=== PATIENT | male | born 1965 | race Two or more races ===

== ENCOUNTER 2016-02-16 06:45 | Emergency (ER) | payer BC ==
[~2016-02-16] VITALS: Ht 180.3 cm; Wt 94.8 kg
[~2016-02-16 06:45] MED LIST: ADVAIR 100-501 EACH INH; ALBUTEROL SULF8.5 GM INH; AMOXICILLIN500 MG ORAL; AZITHROMYCIN250 MG ORAL; BACTRIM DS TAB1 EAC1 ORAL; BACTRIM DS TAB1 EACH PO; CEPHALEXIN500 MG ORAL; CORTISPORIN EAR10 ML OTIC; FLOVENT2 PUFF2 INH; IBUPROFEN200 MG ORAL; IBUPROFEN600 MG ORAL; INTELENCE100 MG PO; IPRATROPIU0.2 MG/1 M HHN; ISENTRESS400 MG PO; KEFLEX500 MG ORAL; NORCO 5-325 TA1 EACH ORAL; NORVIR100 MG PO; PHENERGAN6.25 MG/5 ORAL; PREDNISONE20 MG ORAL; PREDNISONE50 MG ORAL; PREZISTA600 MG PO; PROAIR HFA8.5 GM INH; QVAR 80MCG ORA1 PUFF; ROBITUSSIN COU118 M4 PO; TRUVADA TABLET1 EACH PO; ZITHROMAX250 MG ORAL; ZITHROMAX600 MG PO
[2016-02-16] MEDS ORDERED: DuoNeb 0.5-3(2.5)mg/3ml neb HHN ONE (07:00)
--- NOTE | 2016-02-16 07:03 | Emergency Room Report ---
History of Present Illness General Chief Complaint: Flu Like Symptoms Source: Patient Present Illness HPI Patient is a 50-year-old male presented after increased cough which was intermittently productive. The patient reported having subjective fever the patient became ill proximal and 4 days ago. Patient had not been vomiting. He reported having intermittent chest pain which is worse after coughing. Patient had increased coughing with deep breath. Patient denied any positional changes. He had been taking Robitussin-DM without improvement. Allergies: Coded Allergies: CIPROFLOXACIN (Verified Allergy, Severe, Anaphylaxis, 02/16/16) Patient History Past Medical History: see triage record Reviewed Nursing Documentation: PMH: Agreed, PSxH: Agreed Nursing Documentation-PMH Hx Cardiac Problems: No Hx Asthma: Yes Hx Cancer: No Hx Gastrointestinal Problems: No Hx Neurological Problems: No Review of Systems All Other Systems: negative except mentioned in HPI Physical Exam Vital Signs Date Time Temp Pulse Resp B/P Pulse Ox O2 Delivery O2 Flow Rate FiO2 02/16/16 06:50 99.3 74 12 150/91 99 Room Air Sp02 EP Interpretation: reviewed, normal General Appearance: normal inspection, well appearing, no apparent distress, alert, GCS 15 Head: atraumatic ENT: normal ENT inspection, hearing grossly normal, normal voice Neck: normal inspection, full range of motion, supple, no bony tend Respiratory: normal inspection, lungs clear, normal breath sounds, no respiratory distress, no retraction, no wheezing Cardiovascular #1: regular rate, rhythm, no edema Gastrointestinal: normal inspection, normal bowel sounds, non tender, soft, no guarding, no hernia Genitourinary: no CVA tenderness Musculoskeletal: normal inspection, back normal, normal range of motion Neurologic: normal inspection, alert, oriented x3, responsive, environmental engineering manager III-XII nml as tested, speech normal Psychiatric: normal inspection, judgement/insight normal, mood/affect normal Skin: normal inspection, normal color, no rash Medical Decision Making Diagnostic Impression: Primary Impression: Acute bronchitis ER Course Patient presented for cough.Differential diagnosis included but was not limited to bronchitis, pneumonia, pulmonary embolism, pericarditis, asthma, foreign body. EKG was ordered due to patient's chest pain. The patient's symptoms are not consistent with pulmonary embolism and more consistent with a lung infection. The patient was given a breathing treatment. He was started on antibiotics do to a likely secondary infection of a viral infection and immunocompromise. Chest x-ray was ordered. A chest x-ray one view interpreted by me showed normal lung maya normal cardiac size without evident infiltrate. Patient was given oral Decadron and a prescription for Phenergan with codeine cough syrup.The patient is advised to follow up with primary care doctor in 1-2 days. Patient is advised to return if any worsening condition or if any changes in status that are concerning. EKG Diagnostic Results Rate: normal Rhythm: NSR - 77 ST Segments: no acute changes Rhythm Strip Diag. Results EP Interpretation: yes Rhythm: NSR, no PVC's, no ectopy Chest X-Ray Diagnostic Results EP Interpretation: Yes Findings: no consolidation, no effusion, no pneumothorax, no acute cardiopulmonary disease Number of Views: 1 Last Vital Signs Date Time Temp Pulse Resp B/P Pulse Ox O2 Delivery O2 Flow Rate FiO2 02/16/16 06:50 99.3 74 12 150/91 99 Room Air Status: improved Disposition: HOME, SELF-CARE Condition: Stable Scripts Guaifenesin/Codeine (Guaifenesin-Codeine Syrup) 5 Ml Liquid 5 ML ORAL Q6H Y for For Cough, #118 ML Prov: Darrel Berumen 02/16/16 Darrel Berumen Feb 16, 2016 07:03
[2016-02-16 07:04] VITALS: BP 142/82
[2016-02-16 07:30] VITALS: BP 142/82
[2016-02-16] MEDS ORDERED: ROBITUSSIN AC5 ML ORAL (07:40)
[2016-02-16] MEDS ORDERED: ZITHROMAX250 MG ORAL (07:40)
[2016-02-16] MEDS ORDERED: Dexamethasone Elixir 0.25mg/2.5ml ORAL ONE (07:45)
[2016-02-16 08:10] VITALS: BP 155/84
--- NOTE | 2016-02-16 10:37 | Diagnostic Imaging Report ---
Indication: SOB, just Technique: One view of the chest Comparison: September 21, 2025 Findings: Bands of atelectasis or scarring are seen in the left mid and lower lung. The lungs and pleural spaces are otherwise clear. The heart is upper limits of normal in size. The upper mediastinum is unremarkable Impression: Left lateral basilar atelectasis versus scarring No acute process otherwise
--- NOTE | 2016-02-18 14:54 | Cardiology Report ---
APPROVED REPORT EKG Measurement Heart [id number] Normal sinus rhythm Normal ECG
== END 2016-02-16 08:13 | disposition home or self-care (01) ==
LOC: EMR 07:00
DX: J20.9 Acute bronchitis, unspecified (principal); J45.909 Unspecified asthma, uncomplicated; Z88.1 Allergy status to other antibiotic agents
CPT/HCPCS: 71010; 86710; 93005; 94640; 94664; 99283; J7620

== ENCOUNTER 2016-05-06 07:14 | Emergency (ER) | payer BC ==
[~2016-05-06] VITALS: Ht 177.8 cm; Wt 93.0 kg
[~2016-05-06 07:14] MED LIST changes: +ROBITUSSIN AC5 ML ORAL
[2016-05-06] MEDS ORDERED: NKM (07:29)
[2016-05-06] MEDS ORDERED: Metoclopramide 10mg/2ml Inj IVP ONE (07:45)
[2016-05-06] MEDS ORDERED: Acetaminophen 500mg (ES) tab ORAL ONE (07:45)
[2016-05-06] MEDS ORDERED: Albuterol ud Inhalation HHN ONE ×2 (07:45→10:00)
[2016-05-06] MEDS ORDERED: Azithromycin 500 MG in NS 275 ML IV ONE (07:45)
[2016-05-06] MEDS ORDERED: Solu-MEDROL 125mg Inj IVP ONE (07:45)
[2016-05-06] MEDS ORDERED: DiphenhydrAMINE 50mg/ml Inj IVP ONE (07:45)
[2016-05-06] MEDS ORDERED: fentaNYL 100 mcg/2 mL IV ONE (07:45)
[2016-05-06] MEDS ORDERED: Ipratropium 0.02% Inh Soln 2.5ml UD HHN ONE (07:45)
--- NOTE | 2016-05-06 07:51 | Emergency Room Report ---
History of Present Illness General Chief Complaint: Upper Respiratory Illness Source: Patient Present Illness [facility] The patient presents with 3-4 days of cough with fever and productive phlegm. In addition to that he's been wheezing. The cough has actually been present for 4 weeks. He is producing some green phlegm. Does not have nausea or vomiting or diarrhea. He has chest pain also when he coughs that is 8/10. Pleuritic. When he was getting out of his ride at the emergency department he had a coughing fit and almost passed out and caught himself before he hit the ground. He denies any palpitations at that time or increased chest pain. Prior admissions for asthma and asthmatic bronchitis. The patient is HIV positive but has not been taking his medications for 4 or 5 months. He claims that his schedule is too busy. The patient denies any headache, rashes, dysuria, joint pain. He did not receive a flu shot last year. 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 Reviewed Nursing Documentation: PMH: Agreed, PSxH: Agreed Nursing Documentation-PMH Past Medical History: No History, Except For Hx Asthma: Yes Hx Cancer: No Hx Gastrointestinal Problems: No Hx Neurological Problems: No Review of Systems All Other Systems: negative except mentioned in HPI Physical Exam Vital Signs Date Time Temp Pulse Resp B/P Pulse Ox O2 Delivery O2 Flow Rate FiO2 05/06/16 07:26 102.4 97 16 122/76 95 Room Air Sp02 EP Interpretation: reviewed, abnormal - interpreted as low by me for non- smoker General Appearance: well appearing, no apparent distress, GCS 15 Head: normocephalic Eyes: bilateral eye PERRL, bilateral eye normal inspection ENT: moist mucus membranes Neck: supple Respiratory: chest non-tender, rhonchi, wheezing, expiration, other - paroxysms of coughing Cardiovascular #1: regular rate, rhythm Cardiovascular #2: 2+ radial (R) Gastrointestinal: normal inspection, normal bowel sounds, non tender, no mass, non-distended Musculoskeletal: back normal, gait/station normal, normal range of motion Neurologic: alert, oriented x3, grossly normal Psychiatric: mood/affect normal Skin: normal inspection, warm/dry Medical Decision Making Diagnostic Impression: Primary Impression: Pneumonia Qualified Codes: J18.9 - Pneumonia, unspecified organism Additional Impressions: HIV disease Noncompliance ER Course The patient presents with fever, dyspnea, hypoxia and productive cough. Differential includes pneumonia, asthmatic bronchitis, Pneumocystis carinae amongst others. Patient needs evaluation with blood cultures, CBC, labs and lactate. Initially treated with Symmetrel, breathing treatments fluid hydration antipyretics and antibiotics. The fact that the patient's not being compliant with his HIV medications put him at risk however most common etiologies would be bacterial. The patient will need to be admitted to the hospital. Patient slightly improved with tx, but still wheezing. Repeat treatments. Labs with normal WBC and lactic acid. Patient needs admission for continued antibiotic treatment along with assessment of HIV status. Admit med Dr. North. Laboratory Tests Test 05/06/16 07:45 05/06/16 13:20 White Blood Count 5.0 K/UL (4.8-10.8) Red Blood Count 4.78 M/UL (4.70-6.10) Hemoglobin 14.4 G/DL (14.2-18.0) Hematocrit 40.7 % (42.0-52.0) L Mean Corpuscular Volume 85 FL (80-99) Mean Corpuscular Hemoglobin 30.2 PG (27.0-31.0) Mean Corpuscular Hemoglobin Concent 35.4 G/DL (32.0-36.0) Red Cell Distribution Width 10.6 % (11.6-14.8) L Platelet Count 152 K/UL (150-450) Mean Platelet Volume 11.2 FL (6.5-10.1) H Neutrophils (%) (Auto) 53.3 % (45.0-75.0) Lymphocytes (%) (Auto) 30.8 % (20.0-45.0) Monocytes (%) (Auto) 13.8 % (1.0-10.0) H Eosinophils (%) (Auto) 1.1 % (0.0-3.0) Basophils (%) (Auto) 1.0 % (0.0-2.0) Sodium Level 140 mEQ/L (135-145) Potassium Level 3.5 mEQ/L (3.4-4.9) Chloride Level 99 mEQ/L (98-107) Carbon Dioxide Level 22 mEQ/L (20-30) Anion Gap 19 (5-15) H Blood Urea Nitrogen 9 mg/dL (7-23) Creatinine 0.9 mg/dL (0.7-1.2) Estimate Glomerular Filtration Rate > 60 mL/min (>60) Glucose Level 118 mg/dL (74-106) H Lactic Acid Level 1.70 mmol/L (0.66-2.22) Calcium Level 8.7 mg/dL (8.6-10.2) Total Bilirubin 1.5 mg/dL (0.0-1.2) H Direct Bilirubin 0.3 mg/dL (0.1-0.3) Aspartate Amino Transferase (AST) 83 U/L (5-40) H Alanine Aminotransferase (ALT) 86 U/L (3-41) H Alkaline Phosphatase 91 U/L (40-129) Troponin I < 0.30 ng/mL (<=0.30) Total Protein 7.3 g/dL (6.6-8.7) Albumin 4.2 g/dL (3.5-5.2) Globulin 3.1 g/dL Albumin/Globulin Ratio 1.3 (1.0-2.7) Urine Color Pale yellow Urine Appearance Clear Urine pH 6 (4.5-8.0) Urine Specific [place] 1.010 (1.005-1.035) Urine Protein Negative (NEGATIVE) Urine Glucose (UA) Negative (NEGATIVE) Urine Ketones 3+ (NEGATIVE) H Urine Occult Blood Negative (NEGATIVE) Urine Nitrite Negative (NEGATIVE) Urine Bilirubin Negative (NEGATIVE) Urine Urobilinogen Normal MG/DL (0.0-1.0) Urine Leukocyte Esterase Negative (NEGATIVE) Microbiology Date/Time Source Procedure Growth Status 05/06/16 08:25 Nasal Nares Influenza Types A,B Antigen (KINZA) - Final Complete EKG Diagnostic Results Rate: normal Rhythm: NSR ST Segments: no acute changes Rhythm Strip Diag. Results EP Interpretation: yes Rhythm: NSR, no PVC's, no ectopy Chest X-Ray Diagnostic Results EP Interpretation: Yes Findings: no effusion, no pneumothorax, other - RLL infiltrate Number of Views: 1 Last Vital Signs Date Time Temp Pulse Resp B/P Pulse Ox O2 Delivery O2 Flow Rate FiO2 05/06/16 12:00 98.4 85 18 125/75 97 Room Air Status: improved Disposition: ADMITTED INPATIENT Condition: Serious Davonte Wagner M.D. May 06, 2016 07:51
[2016-05-06] MEDS ORDERED: NS 275 ML ONE (08:02)
[2016-05-06] MEDS ORDERED: Tubing IV Cassette IV ONE (08:02)
[2016-05-06] MEDS ORDERED: Azithromycin Inj IV ONE (08:02)
[2016-05-06 08:28] LABS: EOSINOPHILS % (AUTO) 1.1 % (0.0-3.0); LYMPHOCYTES % (AUTO) 30.8 % (20.0-45.0); MEAN CORPUSCULAR HEMOGLOBIN 30.2 PG (27.0-31.0); MEAN CORPUSCULAR HGB CONC 35.4 G/DL (32.0-36.0); MEAN CORPUSCULAR VOLUME 85 FL (80-99); MEAN PLATELET VOLUME 11.2 FL (6.5-10.1); MONOCYTES % (AUTO) 13.8 % (1.0-10.0); NEUTROPHILS % (AUTO) 53.3 % (45.0-75.0); PLATELET COUNT 152 K/UL (150-450); RED BLOOD COUNT 4.78 M/UL (4.70-6.10); RED CELL DISTRIBUTION WIDTH 10.6 % (11.6-14.8)
[2016-05-06 08:30] LABS: ALANINE AMINOTRANSFERASE 86 U/L (3-41); ALBUMIN/GLOBULIN RATIO 1.3 (1.0-2.7); ANION GAP 19 (5-15); ASPARTATE AMINO TRANSFERASE 83 U/L (5-40); CALCIUM 8.7 mg/dL (8.6-10.2); CARBON DIOXIDE 22 mEQ/L (20-30); CHLORIDE 99 mEQ/L (98-107); CREATININE 0.9 mg/dL (0.7-1.2); GLOMERULAR FILTRATION RATE > 60 mL/min (>60); HEMOLYSIS 6; POTASSIUM 3.5 mEQ/L (3.4-4.9); SODIUM 140 mEQ/L (135-145); TOTAL PROTEIN 7.3 g/dL (6.6-8.7); TROPONIN I < 0.30 ng/mL (<=0.30)
[2016-05-06 08:42] LABS: BILIRUBIN,DIRECT 0.3 mg/dL (0.1-0.3)
[2016-05-06 09:00] VITALS: BP 129/73
--- NOTE | 2016-05-06 09:24 | Diagnostic Imaging Report ---
Indication: COUGH Technique: One view of the chest Comparison: 02/16/2016 Findings: Lungs and pleural spaces are clear. Heart size is normal Impression: No acute process
[2016-05-06 12:00] VITALS: BP 125/75
[2016-05-06 14:09] LABS: APPEARANCE,URINE CLEAR; KETONES,URINE 3+ (NEGATIVE); LEUKOCYTE ESTERASE ,URINE NEGATIVE (NEGATIVE); NITRITE,URINE NEGATIVE (NEGATIVE); PH,URINE 6 (4.5-8.0); PROTEIN,URINE NEGATIVE (NEGATIVE); UROBILINOGEN,URINE NORMAL MG/DL (0.0-1.0)
[2016-05-06] MEDS ORDERED: CHERATUSSIN AC118 ML PO (14:58)
[2016-05-06] MEDS ORDERED: NYSTATIN100000 UN1 ORAL (14:59)
[2016-05-06] MEDS ORDERED: MYCELEX TROCHE10 MG ORAL (15:05)
[2016-05-06 15:14] VITALS: BP 106/78
[2016-05-06] MEDS ORDERED: LORATADINE10 M2 PO (15:20)
[2016-05-06 17:12] VITALS: BP 114/69
[2016-05-06] MEDS ORDERED: cefTRIAXone 1 GM in NS 55 ML IVPB ONE (17:15)
[2016-05-06 19:39] VITALS: BP 124/75
[2016-05-06 19:40] VITALS: BP 124/75
--- NOTE | 2016-05-09 22:25 | Cardiology Report ---
APPROVED REPORT EKG Measurement Heart [id number] Normal sinus rhythm Normal ECG
== END 2016-05-06 19:40 | disposition home or self-care (01) ==
LOC: EDBEDREQ 07:54 → EMR 08:01 → EDBEDREQ 09:38 → CANBEDREQ 19:28 → EDBEDREQ 19:28 → EMR 19:40
DX: J18.9 Pneumonia, unspecified organism (principal); B20 Human immunodeficiency virus [HIV] disease; Z91.14 Patient's other noncompliance with medication regimen; Z88.1 Allergy status to other antibiotic agents
CPT/HCPCS: 36415; 71010; 80053; 81003; 82248; 83605; 84484; 85025; 86710; 87040; 93005; 94640; 94664; 99285; J0456; J0696; J1200; J2765; J2930; J3010; J7050

== ENCOUNTER 2016-10-14 22:02 | Emergency (ER) | payer BC ==
[~2016-10-14] VITALS: Ht 177.8 cm; Wt 87.1 kg
[~2016-10-14 22:02] MED LIST changes: +CHERATUSSIN AC118 ML PO; +LORATADINE10 M2 PO; +MYCELEX TROCHE10 MG ORAL; +NKM; +NYSTATIN100000 UN1 ORAL
[2016-10-14] MEDS ORDERED: NKM (22:09)
[2016-10-14] MEDS ORDERED: Ipratropium 0.02% Inh Soln 2.5ml UD HHN ONE (22:30)
[2016-10-14] MEDS ORDERED: Albuterol ud Inhalation HHN ONE (22:30)
[2016-10-14] MEDS ORDERED: PredniSONE 20mg tab ORAL ONE (22:30)
[2016-10-14] MEDS ORDERED: PREDNISONE20 MG ORAL (23:08)
--- NOTE | 2016-10-14 23:09 | Emergency Room Report ---
History of Present Illness General Chief Complaint: Dyspnea/Respdistress Source: Patient Present Illness HPI This is a 51-year-old male with a history of asthma. He present with an asthma exacerbation for one day. This was because of the weather change. His inhaler is not helping. No fever chills but no nausea vomiting. Wheezing. Coughing is nonproductive in nature. Denies any other complaint. Last use of steroids over a year ago. Allergies: Coded Allergies: CIPROFLOXACIN (Verified Allergy, Severe, Anaphylaxis, 02/16/16) Patient History Past Medical History: see triage record, old chart reviewed, asthma Past Surgical History: none Pertinent Family History: none Social History: Denies: smoking Immunizations: other Reviewed Nursing Documentation: PMH: Agreed, PSxH: Agreed Nursing Documentation-PMH Hx Asthma: Yes - BRONCHITIS, PNEUMONIA Hx Cancer: No Hx Gastrointestinal Problems: No Review of Systems Eye: Denies: eye pain, blurred vision ENT: Denies: ear pain, nose congestion, throat swelling Respiratory: Reports: cough, shortness of breath, wheezing Cardiovascular: Denies: chest pain, palpitations Gastrointestinal: Denies: abdominal pain, diarrhea, nausea, vomiting Musculoskeletal: Denies: back pain, joint pain Skin: Denies: rash Neurological: Denies: headache, numbness Endocrine: Denies: increased thirst, increased urine Hematologic/Lymphatic: Denies: easy bruising All Other Systems: negative except mentioned in HPI Physical Exam Vital Signs Date Time Temp Pulse Resp B/P (MAP) Pulse Ox O2 Delivery O2 Flow Rate FiO2 10/14/16 22:05 98.1 80 18 189/91 98 10/14/16 22:23 Room Air 10/14/16 22:36 21 vitals normal Sp02 EP Interpretation: reviewed, normal General Appearance: well appearing, no apparent distress, alert Head: normocephalic, atraumatic Eyes: bilateral eye PERRL, bilateral eye EOMI ENT: hearing grossly normal, normal pharynx Neck: full range of motion, supple, no meningismus Respiratory: chest non-tender, wheezing Cardiovascular #1: regular rate, rhythm, no murmur Gastrointestinal: normal bowel sounds, non tender, no mass, no organomegaly, no bruit, non-distended Musculoskeletal: back normal, gait/station normal, normal range of motion Psychiatric: mood/affect normal Skin: warm/dry Medical Decision Making Diagnostic Impression: Primary Impression: Bronchitis with asthma, acute ER Course patient presents with a viral bronchitis with asthma exacerbation. Better after breathing treatment. We'll discharge home. No evidence of pneumonia, ACS , PE to name a few. Last Vital Signs Date Time Temp Pulse Resp B/P (MAP) Pulse Ox O2 Delivery O2 Flow Rate FiO2 10/14/16 22:38 80 20 100 Room Air 21 10/14/16 22:05 98.1 189/91 Status: improved Disposition: HOME, SELF-CARE Condition: Stable Scripts Prednisone* (PREDNISONE*) 20 Mg Tablet 60 MG ORAL DAILY, #12 TAB Prov: IRENE BUENO M.D. 10/14/16 Referrals: [facility],REFERRING (PCP) Additional Instructions: Followup with your DrJhonatan in 2-5 days if not better. Return if symptom worsen. IRENE BUENO M.D. Oct 14, 2016 23:09
[2016-10-14 23:25] VITALS: BP 120/80
== END 2016-10-14 23:35 | disposition home or self-care (01) ==
LOC: EMR 22:20
DX: J45.901 Unspecified asthma with (acute) exacerbation (principal)
CPT/HCPCS: 94640; 99284

== ENCOUNTER 2016-10-20 17:17 | Emergency (ER) | payer BC ==
[~2016-10-20] VITALS: Ht 177.8 cm; Wt 86.2 kg
[2016-10-20] MEDS ORDERED: Albuterol ud Inhalation HHN ONE (17:30)
[2016-10-20] MEDS ORDERED: VENTOLIN HFA18 GM INH (17:39)
[2016-10-20] MEDS ORDERED: ACETAMINOPHEN-1 EAC1 ORAL (17:39)
[2016-10-20] MEDS ORDERED: AUGMENTIN 875-1 EAC1 ORAL (17:39)
--- NOTE | 2016-10-20 18:06 | Emergency Room Report ---
History of Present Illness General Chief Complaint: Upper Respiratory Illness Source: Patient Present Illness HPI 51YOM with continued dry cough, measured fever "103" at home, now with sinus congestion, sore throat + history of asthma + history of HIV. Stopped HAART 6 months ago "because I've been busy." Last viral load was "low" and cd4 "high." Used to be on bactrim PPx Denies PCP PNA in the past Denies smoking Seen and DCed 6 days ago from ED for asthma exacerbation Was given short course of prednisone which he finished today Allergies: Coded Allergies: CIPROFLOXACIN (Verified Allergy, Severe, Anaphylaxis, 02/16/16) Patient History Past Medical History: asthma, HIV Past Surgical History: none Pertinent Family History: none Social History: Denies: smoking, alcohol use, drug use Immunizations: UTD Reviewed Nursing Documentation: PMH: Agreed, PSxH: Agreed Nursing Documentation-PMH Past Medical History: No History, Except For Hx Cardiac Problems: No - HIV Hx Hypertension: No Hx Pacemaker: No Hx Asthma: Yes - BRONCHITIS, PNEUMONIA Hx COPD: No Hx Diabetes: No Hx Cancer: No Hx Gastrointestinal Problems: No Hx Dialysis: No History Of Psychiatric Problem: No Hx Neurological Problems: No Hx Cerebrovascular Accident: No Hx Seizures: No Review of Systems All Other Systems: negative except mentioned in HPI Physical Exam Vital Signs Date Time Temp Pulse Resp B/P (MAP) Pulse Ox O2 Delivery O2 Flow Rate FiO2 10/20/16 17:32 98.6 102 22 151/90 96 Room Air Sp02 EP Interpretation: reviewed, normal General Appearance: normal inspection, well appearing, no apparent distress, alert, GCS 15, non-toxic Head: normocephalic, atraumatic Eyes: bilateral eye PERRL, bilateral eye EOMI ENT: normal ENT inspection, hearing grossly normal, normal voice, pharyngeal erythema, tonsillar exudate Neck: normal inspection, full range of motion, supple, no bony tend Respiratory: normal inspection, no rhonchi, no respiratory distress, no retraction, no accessory muscle use, speaking full sentences, wheezing Cardiovascular #1: regular rate, rhythm, no edema Gastrointestinal: normal inspection, normal bowel sounds, non tender, soft, no guarding, no hernia Genitourinary: no CVA tenderness Musculoskeletal: normal inspection, back normal, normal range of motion, Lisa' s Sign negative Psychiatric: normal inspection, judgement/insight normal, mood/affect normal Skin: normal inspection, normal color, no rash Medical Decision Making Diagnostic Impression: Primary Impression: Bronchitis Additional Impression: Strep pharyngitis ER Course Continued bronchitis with subjective fever at home Afebrile here Well appearing except for cough Mild wheeze, improved with nebs X2, steroids History of HIV not on HAART but not hypoxic and CXR no PNA or PCP PNA has strep pharyngitis as well Rx Abx Rx Ventolin, T#3 Close PMD followup to recheck and consider restarting HAART DC home Chest X-Ray Diagnostic Results Chest X-Ray Diagnostic Results : Chest X-Ray Ordered: Yes # of Views/Limited/Complete: 1 View Indication: Shortness of Breath EP Interpretation: Yes Interpretation: no consolidation, no effusion, no pneumothorax, no acute cardiopulmonary disease, other - Unchanged from 05/06/16 CXR Impression: No acute disease Electronically Signed by: Dr Ramesh Castañeda MD Last Vital Signs Date Time Temp Pulse Resp B/P (MAP) Pulse Ox O2 Delivery O2 Flow Rate FiO2 10/20/16 17:39 96 22 93 Room Air 10/20/16 17:32 98.6 151/90 Status: improved Disposition: HOME, SELF-CARE Condition: Improved Scripts Acetaminophen With Codeine (T#3) (TYLENOL #3 TAB*) Y Tab 1 TAB ORAL Q8H Y for For Cough for 7 Days, #30 TAB Prov: RAMESH CASTAÑEDA M.D. 10/20/16 Albuterol Sulfate (VENTOLIN HFA) 18 Gm Hfa.aer.ad 1 PUFF INH EVERY 6 HOURS for For Cough, #18 GM 0 Refills Prov: RAMESH CASTAÑEDA M.D. 10/20/16 Amoxicillin/Potassium Clav 875-125* (AUGMENTIN 875-125 TABLET*) 1 Each Tablet 1 TAB ORAL TWICE A DAY for 7 Days, #14 TAB Prov: RAMESH CASTAÑEDA M.D. 10/20/16 Referrals: [facility],REFERRING (PCP) Patient Instructions: Pharyngitis, [id number] Additional Instructions: - Take ALL antibiotics until finished - Use albuterol inhaler as needed for cough - Take T#3 or tea with honey at night for sleep/cough treatment - Follow up with your primary doctor to restart HIV medication RAMESH CASTAÑEDA M.D. Oct 20, 2016 18:06
[2016-10-20] MEDS ORDERED: Tylenol #3 tab (300mg/30mg) ORAL ONE ×2 (18:15→18:30)
[2016-10-20] MEDS ORDERED: Augmentin 875mg Tab ORAL ONE (18:30)
[2016-10-20 18:38] VITALS: BP 125/80
--- NOTE | 2016-10-21 10:34 | Diagnostic Imaging Report ---
Indication: SOB Technique: One view of the chest Comparison: none Findings: Lungs and pleural spaces are clear. Heart size is normal. No significant interim change Impression: No acute process This agrees with the preliminary interpretation provided by the emergency room physician
== END 2016-10-20 18:40 | disposition home or self-care (01) ==
LOC: EMR 17:40
DX: J20.9 Acute bronchitis, unspecified (principal); J02.0 Streptococcal pharyngitis; J45.909 Unspecified asthma, uncomplicated; Z88.8 Allergy status to other drugs, medicaments and biological substances
CPT/HCPCS: 71010; 94640; 99284; J8540

== ENCOUNTER 2016-11-22 17:06 | Emergency (ER) | payer BC, OTHER ==
[~2016-11-22] VITALS: Ht 177.8 cm; Wt 81.6 kg
[~2016-11-22 17:06] MED LIST changes: +ACETAMINOPHEN-1 EAC1 ORAL; +AUGMENTIN 875-1 EAC1 ORAL; +VENTOLIN HFA18 GM INH
[2016-11-22] MEDS ORDERED: Albuterol ud Inhalation HHN ONE (17:45)
[2016-11-22] MEDS ORDERED: Ipratropium 0.02% Inh Soln 2.5ml UD HHN ONE (17:45)
[2016-11-22] MEDS ORDERED: BACTRIM DS TAB1 EAC1 ORAL (18:27)
[2016-11-22] MEDS ORDERED: PROAIR HFA8.5 GM INH (18:27)
[2016-11-22] MEDS ORDERED: PREDNISONE20 MG ORAL (18:27)
[2016-11-22] MEDS ORDERED: PROMETHAZINE-C118 M1 ORAL (18:27)
[2016-11-22] MEDS ORDERED: ZITHROMAX250 MG ORAL (18:27)
[2016-11-22 18:36] VITALS: BP 125/70
--- NOTE | 2016-11-22 20:39 | Emergency Room Report ---
History of Present Illness General Chief Complaint: Upper Respiratory Illness Source: Patient Present Illness HPI The patient is a 51-year-old male with a history of HIV presenting for 2 months of coughing. He is unsure of his CD4 count. He has been treated in this emergency department twice for the same complaint. He was given oral steroids, albuterol, and Augmentin. He states that symptoms initially resolved and then returned. He is producing a green to yellow sputum. He also admits to subjective fever and chills. He denies any other symptoms including nausea, vomiting, hemoptysis, shortness of breath, chest pain, abdominal pain, dizziness, blurred vision Allergies: Coded Allergies: CIPROFLOXACIN (Verified Allergy, Severe, Anaphylaxis, 02/16/16) Patient History Past Medical History: see triage record Pertinent Family History: none Reviewed Nursing Documentation: PMH: Agreed, PSxH: Agreed Nursing Documentation-PMH Hx Cardiac Problems: No - HIV Hx Hypertension: No Hx Pacemaker: No Hx Asthma: Yes - BRONCHITIS, PNEUMONIA Hx COPD: No Hx Diabetes: No Hx Cancer: No Hx Gastrointestinal Problems: No Hx Dialysis: No Hx Neurological Problems: No Hx Cerebrovascular Accident: No Hx Seizures: No Review of Systems All Other Systems: negative except mentioned in HPI Physical Exam Vital Signs Date Time Temp Pulse Resp B/P (MAP) Pulse Ox O2 Delivery O2 Flow Rate FiO2 11/22/16 17:22 100.6 116 20 155/66 93 Room Air Sp02 EP Interpretation: reviewed, normal General Appearance: no apparent distress, alert, GCS 15, non-toxic Head: normocephalic, atraumatic Eyes: bilateral eye normal inspection, bilateral eye PERRL ENT: hearing grossly normal, normal pharynx, no angioedema, normal voice Neck: full range of motion, supple/symm/no masses Respiratory: chest non-tender, no respiratory distress, no retraction, no accessory muscle use, wheezing - bilat diffuse Cardiovascular #1: regular rate, rhythm, no edema Cardiovascular #2: 2+ carotid (R), 2+ carotid (L), 2+ radial (R), 2+ radial (L) , 2+ dorsalis pedis (R), 2+ dorsalis pedis (L) Genitourinary: normal inspection, no CVA tenderness Musculoskeletal: back normal, gait/station normal, normal range of motion, non- tender Neurologic: alert, oriented x3, responsive, motor strength/tone normal, sensory intact, speech normal Psychiatric: judgement/insight normal, memory normal, mood/affect normal, no suicidal/homicidal ideation Skin: normal color, no rash, warm/dry, well hydrated Lymphatic: no adenopathy Medical Decision Making PA Attestation Dr. Berumen is my supervising physician. Patient management was discussed with my supervising physician Diagnostic Impression: Primary Impression: Atypical pneumonia Additional Impression: Asthma Qualified Codes: J45.909 - Unspecified asthma, uncomplicated ER Course The patient is a 51-year-old male with a history of HIV presenting for 2 months of coughing. Differential diagnosis include but not limited to pharyngitis, sinusitis, AOM, bronchitis, PNA PE: afebrile. No apparent distress. No TTP over maxillary or frontal sinuses. Lungs: diffuse wheezing. No accessory muscle use. No resp distress Heart: RRR, no abnormal heart sounds Ears: external auditory canal clear. Non erythematous. Bilat TM intact. Cone of light present bilat. No bulging of TM. No serous fluid seen. no nasal D/C No cervical lymphad No tonsillar exudate. Uvula midline.Oropharynx non erythematous CXR shows Increased bronchovascular markings The patient is given a breathing treatment in ER The patient will be discharged home with a prescription for albuterol, prednisone, abx, and cough medication. He states that he will followup with his primary doctor. ER precautions are given Chest X-Ray Diagnostic Results Chest X-Ray Diagnostic Results : Chest X-Ray Ordered: Yes # of Views/Limited/Complete: 1 View Indication: Other - cough EP Interpretation: Yes Interpretation: no effusion, no pneumothorax, other - Increased markings Impression: Other - Increased markings Electronically Signed by: Timmy Garces PA-C PA Scribe Text My and my supervising physician's interpretation of the chest xrays are there is no effusion, no acute cardiopulmonary disease, no pneumothorax. There is however increased interstitial markings Last Vital Signs Date Time Temp Pulse Resp B/P (MAP) Pulse Ox O2 Delivery O2 Flow Rate FiO2 11/22/16 18:36 99.2 110 22 125/70 99 Room Air Status: improved Disposition: HOME, SELF-CARE Condition: Improved Scripts Albuterol Sulfate* (PROAIR HFA*) 8.5 Gm Hfa.aer.ad 2 PUFFS INH Q6H, #8.5 GM 0 Refills Prov: TIMMY GARCES.A. 11/22/16 Prednisone* (PREDNISONE*) 20 Mg Tablet 40 MG ORAL DAILY, #10 TAB Prov: TIMMY GARCES.A. 11/22/16 Azithromycin* (ZITHROMAX*) 250 Mg Tablet 250 MG ORAL DAILY, #6 TAB 0 Refills Take two tables once daily for 1 day, then one tablet once daily for 4 days. Prov: TIMMY GARCES.A. 11/22/16 Trimethoprim/Sulfamethoxazole 160/800* (BACTRIM DS TABLET*) 1 Each Tablet 1 TAB ORAL TWICE A DAY, #14 TAB Prov: TIMMY GARCESA. 11/22/16 Codeine/Promethazine Hcl* (PROMETHAZINE-CODEINE SYRUP*) 118 Ml Syrup 5 ML ORAL Q6H Y for For Cough, #120 ML 0 Refills Prov: TIMMY GARCESAJhonatan 11/22/16 Patient Instructions: Cough, Adult, Community-Acquired Pneumonia, Adult Additional Instructions: I discussed my findings with the patient. All questions and concerns have been answered. Treatment and medication compliance have been addressed. I advised the patient that they need to follow up with your primary doctor as soon as possible. Return to ED if pain remains or worsens, cough worsens or remains, you notice blood in your sputum, you notice wheezing, you experience a fever, or if needed for any reason. Patient verbalized understanding of discharge instructions. TIMMY GARCES Nov 22, 2016 20:39
--- NOTE | 2016-11-23 09:39 | Diagnostic Imaging Report ---
Indication: COUGH Comparison: 10/20/2016 Findings: Single view of the chest shows a normal cardiomediastinal silhouette. Pulmonary vasculature is normal. Lung are clear. Soft tissues and osseous structures are within normal limits. Impression: No acute chest disease
== END 2016-11-22 18:36 | disposition home or self-care (01) ==
LOC: EMR 18:20
DX: J18.9 Pneumonia, unspecified organism (principal); J45.909 Unspecified asthma, uncomplicated
CPT/HCPCS: 71010; 94640; 99284

== ENCOUNTER 2016-11-25 16:07 | Emergency (ER) | payer BC ==
[~2016-11-25] VITALS: Ht 177.8 cm; Wt 77.1 kg
[~2016-11-25 16:07] MED LIST changes: +PROMETHAZINE-C118 M1 ORAL
[2016-11-25] MEDS: Ipratropium 0.02% Inh Soln 2.5ml UD HHN SCH ×3 (16:54→17:38)
[2016-11-25] MEDS: Albuterol ud Inhalation HHN SCH ×3 (16:55→17:39)
[2016-11-25 17:49] VITALS: BP 117/66
[2016-11-25 18:32] LABS: ALANINE AMINOTRANSFERASE 37 U/L (12-78); ALBUMIN/GLOBULIN RATIO 0.5 (1.0-2.7); ANION GAP 20 mmol/L (5-15); ASPARTATE AMINO TRANSFERASE 21 U/L (15-37); CALCIUM 9.9 MG/DL (8.5-10.1); CARBON DIOXIDE 17 MMOL/L (21-32); CHLORIDE 87 MMOL/L (98-107); CREATININE 1.4 MG/DL (0.55-1.30); GLOMERULAR FILTRATION RATE 53.4 mL/min (>60); POTASSIUM 4.6 MMOL/L (3.5-5.1); SODIUM 124 MMOL/L (136-145); TOTAL PROTEIN 7.5 G/DL (6.4-8.2)
[2016-11-25 18:41] LABS: MEAN CORPUSCULAR HGB CONC 33.7 G/DL (32.0-36.0); MEAN CORPUSCULAR VOLUME 86 FL (80-99); MEAN PLATELET VOLUME 7.7 FL (6.5-10.1); PLATELET COUNT 215 K/UL (150-450); RED BLOOD COUNT 4.46 M/UL (4.70-6.10); RED CELL DISTRIBUTION WIDTH 10.9 % (11.6-14.8)
[2016-11-25 18:44] LABS: WHITE BLOOD COUNT 1.2 K/UL (4.8-10.8)
[2016-11-25] MEDS ORDERED: Bactrim DS (160mg/800mg) tab ORAL ONE (19:30)
[2016-11-25] MEDS ORDERED: cefTRIAXone 1 GM in NS 55 ML IVPB ONE (19:30)
[2016-11-25] MEDS ORDERED: ISENTRESS400 MG ORAL (20:32)
[2016-11-25] MEDS ORDERED: PREZISTA600 MG ORAL (20:32)
[2016-11-25] MEDS ORDERED: TRUVADA 200 MG1 EAC1 ORAL (20:32)
[2016-11-25] MEDS ORDERED: ALBUTEROL2.5 MG/3 M INH (20:32)
[2016-11-25] MEDS ORDERED: NYSTATIN100000 UN1 ORAL (20:32)
[2016-11-25] MEDS ORDERED: CLOTRIMAZOLE10 MG MM (20:32)
[2016-11-25] MEDS ORDERED: ZYRTEC10 MG ORAL (20:32)
[2016-11-25] MEDS ORDERED: ACETAMINOPHEN-1 EAC1 ORAL (20:32)
[2016-11-25] MEDS ORDERED: NORVIR100 MG ORAL (20:32)
[2016-11-25] MEDS ORDERED: PREDNISONE20 MG ORAL (20:32)
[2016-11-25] MEDS ORDERED: ADVAIR 250-501 EACH INH (20:32)
[2016-11-25] MEDS ORDERED: INTELENCE100 MG ORAL (20:32)
[2016-11-25] MEDS ORDERED: MONTELUKAST SOD10 MG ORAL (20:32)
[2016-11-25] MEDS ORDERED: AZITHROMYCIN600 MG ORAL (20:32)
[2016-11-25] MEDS ORDERED: FLUCONAZOLE100 MG ORAL (20:32)
[2016-11-25] MEDS ORDERED: BACTRIM DS TAB1 EAC1 ORAL (20:32)
[2016-11-25 20:45] VITALS: BP 132/77
--- NOTE | 2016-11-25 21:08 | Emergency Room Report ---
Physical Exam Vital Signs Date Time Temp Pulse Resp B/P (MAP) Pulse Ox O2 Delivery O2 Flow Rate FiO2 11/25/16 16:10 97.7 127 24 117/66 89 Room Air 11/25/16 16:50 2.0 28 Medical Decision Making Diagnostic Impression: Primary Impression: Pneumonia Additional Impressions: Immunocompromised state AIDS Hypoxemia ER Course This patient presents with uncontrolled 82. He has had cough and congestion a bit hypoxemic. Differential diagnosis includes PCP pneumonia or other pneumonia. Also included in the differential diagnosis is PE. Patient is immunocompromised. He was given broad-spectrum antibiotics to also cover PCP. I had planned on admitting this patient take a few sips down here in the emergency department. The patient's insurance company was requesting his transfer. The patient was requiring nasal cannula oxygen to keep his sats in the mid 90s. He was slightly tachycardic with heart rates around 100. He did have a normal and stable blood pressure. The transferring physician Dr. Major stated that he would arrange ALS transport of this patient. He is stable at this time as long as he does transfer ALS. Laboratory Tests Test 11/25/16 17:45 White Blood Count 1.2 K/UL (4.8-10.8) *L Red Blood Count 4.46 M/UL (4.70-6.10) L Hemoglobin 12.9 G/DL (14.2-18.0) L Hematocrit 38.5 % (42.0-52.0) L Mean Corpuscular Volume 86 FL (80-99) Mean Corpuscular Hemoglobin 29.0 PG (27.0-31.0) Mean Corpuscular Hemoglobin Concent 33.7 G/DL (32.0-36.0) Red Cell Distribution Width 10.9 % (11.6-14.8) L Platelet Count 215 K/UL (150-450) Mean Platelet Volume 7.7 FL (6.5-10.1) Neutrophils (%) (Auto) % (45.0-75.0) Lymphocytes (%) (Auto) % (20.0-45.0) Monocytes (%) (Auto) % (1.0-10.0) Eosinophils (%) (Auto) % (0.0-3.0) Basophils (%) (Auto) % (0.0-2.0) Neutrophils % (Manual) Pending Lymphocytes % (Manual) Pending Platelet Estimate Pending Platelet Morphology Pending Sodium Level 124 MMOL/L (136-145) L Potassium Level 4.6 MMOL/L (3.5-5.1) Chloride Level 87 MMOL/L (98-107) L Carbon Dioxide Level 17 MMOL/L (21-32) L Anion Gap 20 mmol/L (5-15) H Blood Urea Nitrogen 33 mg/dL (7-18) H Creatinine 1.4 MG/DL (0.55-1.30) H Estimate Glomerular Filtration Rate 53.4 mL/min (>60) Glucose Level 466 MG/DL (74-106) H Calcium Level 9.9 MG/DL (8.5-10.1) Total Bilirubin 0.9 MG/DL (0.2-1.0) Aspartate Amino Transferase (AST) 21 U/L (15-37) Alanine Aminotransferase (ALT) 37 U/L (12-78) Alkaline Phosphatase 102 U/L (46-116) Total Protein 7.5 G/DL (6.4-8.2) Albumin 2.5 G/DL (3.4-5.0) L Globulin 5.0 g/dL Albumin/Globulin Ratio 0.5 (1.0-2.7) L EKG Diagnostic Results Rate: tachycardiac Rhythm: other - tachycardia ST Segments: no acute changes Rhythm Strip Diag. Results EP Interpretation: yes Rate: 100's Rhythm: no PVC's, no ectopy, other Other Impression S.tachycardia Chest X-Ray Diagnostic Results Chest X-Ray Ordered: Yes # of Views/Limited/Complete: 1 View Interpretation: no effusion, no pneumothorax, other Indication: Shortness of Breath Impression: Other - Lingular opacity Interpreting ER Provider: Kiersten Last Vital Signs Date Time Temp Pulse Resp B/P (MAP) Pulse Ox O2 Delivery O2 Flow Rate FiO2 11/25/16 17:58 100 18 98 Nasal Cannula 2.0 28 11/25/16 17:49 97.7 117/66 Disposition: XFER SHT-TRM HOSP Condition: Stable Referrals: [facility],REFERRING (PCP) YNES FNA D.O. Nov 25, 2016 21:08
--- NOTE | 2016-11-25 22:24 | Emergency Room Report ---
History of Present Illness General Chief Complaint: Dyspnea/Respdistress Source: Patient, Medical Record Present Illness HPI The patient is a 51-year-old male with a history of uncontrolled HIV presenting for continued shortness of breath and cough. The patient has been seen in this emergency department several times over the past month for the same complaint. He is been given prescriptions for various antibiotics including azithromycin, Bactrim, and Augmentin which have not helped. He is also been given prescriptions for steroids which also have not helped. He states that fever has have also continued at home with a maximum of 103F. He states that he has increasingly become short of breath with simple tasks including walking to the bathroom. He denies any other symptoms including nausea, vomiting, dizziness, blurred vision, neck pain or stiffness, chest pain, hemoptysis, abdominal pain, diarrhea , constipation, rash Allergies: Coded Allergies: CIPROFLOXACIN (Verified Allergy, Severe, Anaphylaxis, 02/16/16) Patient History Past Medical History: see triage record, other - HIV Pertinent Family History: none Reviewed Nursing Documentation: PMH: Agreed, PSxH: Agreed Nursing Documentation-PMH Hx Cardiac Problems: No - HIV Hx Hypertension: No Hx Pacemaker: No Hx Asthma: Yes - BRONCHITIS, PNEUMONIA Hx COPD: No Hx Diabetes: No Hx Cancer: No Hx Gastrointestinal Problems: No Hx Dialysis: No Hx Neurological Problems: No Hx Cerebrovascular Accident: No Hx Seizures: No Review of Systems All Other Systems: negative except mentioned in HPI Physical Exam Vital Signs Date Time Temp Pulse Resp B/P (MAP) Pulse Ox O2 Delivery O2 Flow Rate FiO2 11/25/16 16:10 97.7 127 24 117/66 89 Room Air 11/25/16 16:50 2.0 28 Sp02 EP Interpretation: reviewed, normal General Appearance: no apparent distress, alert, GCS 15, non-toxic, lethargic Head: normocephalic, atraumatic Eyes: bilateral eye normal inspection, bilateral eye PERRL ENT: hearing grossly normal, normal pharynx, no angioedema, normal voice Neck: full range of motion, supple/symm/no masses Respiratory: wheezing - diffuse Cardiovascular #1: no edema, tachycardia Cardiovascular #2: 2+ carotid (R), 2+ carotid (L), 2+ radial (R), 2+ radial (L) , 2+ dorsalis pedis (R), 2+ dorsalis pedis (L) Gastrointestinal: normal bowel sounds, non tender, soft, non-distended, no guarding, no rebound Genitourinary: normal inspection, no CVA tenderness Musculoskeletal: back normal, gait/station normal, normal range of motion, non- tender Neurologic: alert, oriented x3, responsive, motor strength/tone normal, sensory intact, speech normal Psychiatric: judgement/insight normal, memory normal, mood/affect normal, no suicidal/homicidal ideation Skin: normal color, no rash, warm/dry, well hydrated Lymphatic: no adenopathy Medical Decision Making PA Attestation Dr. Rascon is my supervising physician. Patient management was discussed with my supervising physician Diagnostic Impression: Primary Impression: Pneumonia Additional Impressions: AIDS Hypoxemia Immunocompromised state ER Course Please see Dr. Rascon's note for MDM/Plan Last Vital Signs Date Time Temp Pulse Resp B/P (MAP) Pulse Ox O2 Delivery O2 Flow Rate FiO2 11/25/16 20:45 97.7 105 22 132/77 96 Nasal Cannula 2.0 11/25/16 17:58 28 Disposition: ADMITTED INPATIENT Condition: Stable Referrals: [facility],REFERR[facility] (PCP) EMILY GARCES Nov 25, 2016 22:24
[2016-11-25 22:40] LABS: BAND NEUTROPHILS % (MANUAL) 5 % (0-8); LYMPHOCYTES % (MANUAL) 55 % (20-45); NEUTROPHILS % (MANUAL) 24 % (45-75); TOTAL CELLS COUNTED 100
[2016-11-25 22:41] LABS: BASOPHILS % (MANUAL) 0 % (0-2); EOSINOPHILS % (MANUAL) 0 % (0-3); PLATELET ESTIMATE ADEQUATE; PLATELET MORPHOLOGY NORMAL
[2016-11-25 22:50] VITALS: BP 127/69
--- NOTE | 2016-11-26 12:59 | Diagnostic Imaging Report ---
Indication: Cough Comparison: 11/22/16 2 views of the chest obtained. Findings: Cardiomediastinal silhouette and pulmonary vascularity are within normal limits for age. The diaphragmatic contour is smooth and costophrenic angles are sharp. No pleural effusions are identified. The bones are unremarkable. Impression: No acute disease
--- NOTE | 2016-11-27 15:47 | Cardiology Report ---
APPROVED REPORT EKG Measurement Heart [id number] Sinus tachycardia Otherwise normal ECG
[2016-11-28 11:47] LABS: OTHERS PATHOLOGIST COMMENT
== END 2016-11-25 22:50 | disposition short-term general hospital (02) ==
LOC: EMR 16:55
DX: J18.9 Pneumonia, unspecified organism (principal); B20 Human immunodeficiency virus [HIV] disease; R09.02 Hypoxemia
CPT/HCPCS: 36415; 71020; 80053; 85007; 85025; 93005; 94640; 94664; 96361; 96374; 99285; J0696

== ENCOUNTER 2017-01-30 02:07 | Emergency (ER) | payer BC, OTHER ==
[~2017-01-30] VITALS: Ht 177.8 cm; Wt 81.6 kg
[~2017-01-30 02:07] MED LIST changes: +ADVAIR 250-501 EACH INH; +ALBUTEROL2.5 MG/3 M INH; +AZITHROMYCIN600 MG ORAL; +CLOTRIMAZOLE10 MG MM; +FLUCONAZOLE100 MG ORAL; +INTELENCE100 MG ORAL; +ISENTRESS400 MG ORAL; +MONTELUKAST SOD10 MG ORAL; +NORVIR100 MG ORAL; +PREZISTA600 MG ORAL; +TRUVADA 200 MG1 EAC1 ORAL; +ZYRTEC10 MG ORAL
[2017-01-30] MEDS ORDERED: PREDNISONE20 MG ORAL (02:19)
[2017-01-30 02:20] VITALS: BP 145/68
[2017-01-30] MEDS ORDERED: Albuterol ud Inhalation HHN ONE ×2 (02:30→04:00)
[2017-01-30 03:10] VITALS: BP 142/67
[2017-01-30 04:40] VITALS: BP 146/78
[2017-01-30 04:50] VITALS: BP 146/78
--- NOTE | 2017-01-31 15:07 | Emergency Room Report ---
History of Present Illness General Chief Complaint: Dyspnea/Respdistress Source: Patient Present Illness HPI 51-year-old male with asthma with likely moderate persistent asthma, presents with one day of chest tightness and cough Takes Advair, albuterol and Singulair for asthma Denies previous intubations or BiPAP use for asthma attacks Used home nebulizer without improvement Denies fever or chills or chest pain Allergies: Coded Allergies: CIPROFLOXACIN (Verified Allergy, Severe, Anaphylaxis, 02/16/16) Patient History Past Medical History: asthma Past Surgical History: none Pertinent Family History: none Social History: Denies: smoking, alcohol use, drug use Immunizations: UTD Reviewed Nursing Documentation: PMH: Agreed, PSxH: Agreed Nursing Documentation-PMH Hx Cardiac Problems: No - HIV Hx Hypertension: No Hx Pacemaker: No Hx Asthma: Yes - BRONCHITIS, PNEUMONIA Hx COPD: No Hx Diabetes: No Hx Cancer: No Hx Gastrointestinal Problems: No Hx Dialysis: No Hx Neurological Problems: No Hx Cerebrovascular Accident: No Hx Seizures: No Review of Systems All Other Systems: negative except mentioned in HPI Physical Exam Vital Signs Date Time Temp Pulse Resp B/P (MAP) Pulse Ox O2 Delivery O2 Flow Rate FiO2 01/30/17 02:13 100.0 94 24 141/72 97 Room Air 01/30/17 02:20 2.0 01/30/17 02:31 21 Sp02 EP Interpretation: reviewed, normal General Appearance: normal inspection, well appearing, no apparent distress, alert, GCS 15, non-toxic Head: normocephalic, atraumatic Eyes: bilateral eye PERRL, bilateral eye EOMI ENT: normal ENT inspection, hearing grossly normal, normal pharynx, no angioedema, normal voice, TMs + canals normal, uvula midline, moist mucus membranes Neck: normal inspection, full range of motion, supple, thyroid normal, no meningismus, no bony tend Respiratory: normal inspection, no rhonchi, no respiratory distress, no retraction, no accessory muscle use, speaking full sentences, wheezing Cardiovascular #1: regular rate, rhythm, no edema, no JVD, normal capillary refill Gastrointestinal: normal inspection, normal bowel sounds, non tender, soft, no mass, no peritonitis, non-distended, no guarding, no hernia, no pulsatile mass Genitourinary: no CVA tenderness Musculoskeletal: normal inspection, back normal, normal range of motion, no calf tenderness, pelvis stable, Lisa's Sign negative Neurologic: normal inspection, alert, oriented x3, responsive, 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, motor strength/tone normal, cerebellar normal, normal gait, speech normal Psychiatric: normal inspection, judgement/insight normal, mood/affect normal, no suicidal/homicidal ideation, no delusions Skin: normal inspection, normal color, no rash Lymphatic: normal inspection, no adenopathy Medical Decision Making Diagnostic Impression: Primary Impression: Asthma Qualified Codes: J45.21 - Mild intermittent asthma with (acute) exacerbation ER Course 51-year-old male with acute asthma exacerbation Improved with nebs, prednisone Patient was never tachypneic, tachycardic, or hypoxic Feels much better after treatment States he has enough medications at home Was given prednisone for 5 days ER course: Patient has remained stable during ED stay. Patient is to be discharged to home. Prescriptions given are prednisone Patient is instructed to follow up with their primary care doctor within 5 days. Patient is instructed to follow up with *specialist within 3 days. Strict return precautions discussed with patient such as fever, chills, worsening/severe pain, nausea, vomiting, which may indicate severe illness. Patient verbalizes understanding and agrees with plan. Please note that this Emergency Department Report was dictated using [employer] carpenter technology software, occasionally this can lead to erroneous entry secondary to interpretation by the dictation equipment Last Vital Signs Date Time Temp Pulse Resp B/P (MAP) Pulse Ox O2 Delivery O2 Flow Rate FiO2 01/30/17 04:50 98.7 94 23 146/78 96 Nasal Cannula 2.0 01/30/17 04:03 32 Status: improved Disposition: HOME, SELF-CARE Condition: Improved Scripts Prednisone* (PREDNISONE*) 20 Mg Tablet 40 MG ORAL DAILY for 4 Days, #8 TAB Prov: RAMESH CASTAÑEDA M.D. 01/30/17 Referrals: [facility],REFERRING (PCP) Patient Instructions: Asthma, Adult RAMESH CASTAÑEDA M.D. Jan 31, 2017 15:06
== END 2017-01-30 04:50 | disposition home or self-care (01) ==
LOC: EMR 02:45
DX: J45.901 Unspecified asthma with (acute) exacerbation (principal)
CPT/HCPCS: 94640; 94664; 99284; J7512

== ENCOUNTER 2017-02-01 13:48 | Inpatient (IN) | payer BC ==
[~2017-02-01] VITALS: Ht 177.8 cm; Wt 86.2 kg
[2017-02-01] MEDS ORDERED: Solu-MEDROL 125mg Inj IVP ONE (14:00)
[2017-02-01] MEDS ORDERED: Ipratropium 0.02% Inh Soln 2.5ml UD HHN ONE (14:00)
--- NOTE | 2017-02-01 14:04 | Emergency Room Report ---
History of Present Illness General Chief Complaint: Upper Respiratory Illness Source: Patient Present Illness HPI Patient 51-year-old male brought in by self after increased difficulty breathing the patient gradual onset of symptoms. Patient was noted be sick for the past 2-3 days. Patient noted have a prior history of HIV. Patient had reportedly been taking oral steroids as well as breathing medications. He had been noted to have increased difficulty breathing and was tripoding on arrival. Patient recently been started on azithromycin and took 2 pills yesterday as well as once a day. Allergies: Coded Allergies: CIPROFLOXACIN (Verified Allergy, Severe, Anaphylaxis, 02/16/16) Patient History Past Medical History: see triage record Reviewed Nursing Documentation: PMH: Agreed, PSxH: Agreed Nursing Documentation-PMH Hx Cardiac Problems: No - HIV+ Hx Hypertension: No Hx Pacemaker: No Hx Asthma: Yes - BRONCHITIS, PNEUMONIA Hx COPD: No Hx Diabetes: No Hx Cancer: No Hx Gastrointestinal Problems: No Hx Dialysis: No Hx Neurological Problems: No Hx Cerebrovascular Accident: No Hx Seizures: No Review of Systems All Other Systems: negative except mentioned in HPI Physical Exam Vital Signs Date Time Temp Pulse Resp B/P (MAP) Pulse Ox O2 Delivery O2 Flow Rate FiO2 02/01/17 13:55 98.4 97 24 159/85 95 Room Air Sp02 EP Interpretation: reviewed, normal General Appearance: alert, GCS 15, non-toxic, moderate distress Head: atraumatic ENT: normal ENT inspection, hearing grossly normal, normal voice Neck: normal inspection, supple, no bony tend Respiratory: normal inspection, no retraction, no accessory muscle use, accessory muscle use, wheezing Cardiovascular #1: regular rate, rhythm, no edema Gastrointestinal: normal inspection, normal bowel sounds, non tender, soft, no guarding, no hernia Genitourinary: no CVA tenderness Musculoskeletal: normal inspection, back normal, normal range of motion Neurologic: normal inspection, alert, oriented x3, responsive, 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 Because of complexity of patient' s case laboratory testing and imaging studies were ordered.Patient was given IV steroids as well as breathing treatments. Chest x-ray showed hyperinflation with nonspecific changes. There is no definite pneumonia noted. The patient continued to have some difficulty breathing with breathing treatments. Dr. Davonte Vernon was contacted for inpatient management due to capitated physician. Labs Test 02/01/17 14:30 02/01/17 15:15 White Blood Count 5.4 K/UL (4.8-10.8) Red Blood Count 4.51 M/UL (4.70-6.10) Hemoglobin 13.9 G/DL (14.2-18.0) Hematocrit 42.6 % (42.0-52.0) Mean Corpuscular Volume 95 FL (80-99) Mean Corpuscular Hemoglobin 30.9 PG (27.0-31.0) Mean Corpuscular Hemoglobin Concent 32.7 G/DL (32.0-36.0) Red Cell Distribution Width 12.8 % (11.6-14.8) Platelet Count 271 K/UL (150-450) Mean Platelet Volume 8.0 FL (6.5-10.1) Neutrophils (%) (Auto) % (45.0-75.0) Lymphocytes (%) (Auto) % (20.0-45.0) Monocytes (%) (Auto) % (1.0-10.0) Eosinophils (%) (Auto) % (0.0-3.0) Basophils (%) (Auto) % (0.0-2.0) Sodium Level 147 MMOL/L (136-145) Potassium Level 2.9 MMOL/L (3.5-5.1) Chloride Level 108 MMOL/L (98-107) Carbon Dioxide Level 27 MMOL/L (21-32) Anion Gap 12 mmol/L (5-15) Blood Urea Nitrogen 11 mg/dL (7-18) Creatinine 0.8 MG/DL (0.55-1.30) Estimat Glomerular Filtration Rate > 60 mL/min (>60) Glucose Level 62 MG/DL (74-106) Calcium Level 8.1 MG/DL (8.5-10.1) Troponin I 0.000 ng/mL (0.000-0.056) EKG Diagnostic Results Rate: normal - 94 Rhythm: NSR ST Segments: no acute changes Last Vital Signs Date Time Temp Pulse Resp B/P (MAP) Pulse Ox O2 Delivery O2 Flow Rate FiO2 02/01/17 13:55 98.4 97 24 159/85 95 Room Air Status: unchanged Disposition: ADMITTED INPATIENT Condition: Serious AtaDarrel Feb 01, 2017 14:04
[2017-02-01 14:10] VITALS: BP 140/79
[2017-02-01] MEDS ORDERED: Sodium Chloride 500ML 500 ML IV ONE (14:15)
[2017-02-01] MEDS ORDERED: BENZONATATE100 MG ORAL (14:31)
[2017-02-01] MEDS ORDERED: NORVIR100 MG ORAL (14:31)
[2017-02-01] MEDS ORDERED: GLIPIZIDE10 MG PO (14:31)
[2017-02-01] MEDS ORDERED: PREZISTA600 MG ORAL (14:31)
[2017-02-01] MEDS ORDERED: INTELENCE200 MG ORAL (14:31)
[2017-02-01] MEDS ORDERED: METFORMIN HCL1000 M1 ORAL (14:31)
[2017-02-01] MEDS: Albuterol ud Inhalation HHN SCH ×2 (14:35→14:36)
[2017-02-01 14:57] LABS: MEAN CORPUSCULAR HEMOGLOBIN 30.9 PG (27.0-31.0); MEAN CORPUSCULAR HGB CONC 32.7 G/DL (32.0-36.0); MEAN CORPUSCULAR VOLUME 95 FL (80-99); PLATELET COUNT 271 K/UL (150-450); RED BLOOD COUNT 4.51 M/UL (4.70-6.10); RED CELL DISTRIBUTION WIDTH 12.8 % (11.6-14.8); WHITE BLOOD COUNT 5.4 K/UL (4.8-10.8)
[2017-02-01 15:05] LABS: ANION GAP 12 mmol/L (5-15); CALCIUM 8.1 MG/DL (8.5-10.1); CARBON DIOXIDE 27 MMOL/L (21-32); CHLORIDE 108 MMOL/L (98-107); CREATININE 0.8 MG/DL (0.55-1.30); GLOMERULAR FILTRATION RATE > 60 mL/min (>60); POTASSIUM 2.9 MMOL/L (3.5-5.1); SODIUM 147 MMOL/L (136-145)
[2017-02-01 15:16] LABS: ALANINE AMINOTRANSFERASE 28 U/L (12-78); ALBUMIN/GLOBULIN RATIO 1.1 (1.0-2.7); ASPARTATE AMINO TRANSFERASE 29 U/L (15-37)
[2017-02-01 15:30] LABS: APPEARANCE,URINE CLEAR; KETONES,URINE NEGATIVE (NEGATIVE); LEUKOCYTE ESTERASE ,URINE NEGATIVE (NEGATIVE); NITRITE,URINE NEGATIVE (NEGATIVE); PH,URINE 6 (4.5-8.0); PROTEIN,URINE NEGATIVE (NEGATIVE); UROBILINOGEN,URINE 1 MG/DL (0.0-1.0)
[2017-02-01 15:59] LABS: EOSINOPHILS % (MANUAL) 27 % (0-3); LYMPHOCYTES % (MANUAL) 42 % (20-45); NEUTROPHILS % (MANUAL) 20 % (45-75); TOTAL CELLS COUNTED 100
[2017-02-01 16:00] LABS: BAND NEUTROPHILS % (MANUAL) 0 % (0-8); BASOPHILS % (MANUAL) 0 % (0-2); PLATELET ESTIMATE ADEQUATE; PLATELET MORPHOLOGY NORMAL
[2017-02-01 16:01] LABS: REACTIVE LYMPHOCYTES 2+
[2017-02-01 16:20] VITALS: BP 144/70
[2017-02-01 18:20] VITALS: BP 154/85
[2017-02-01] MEDS ORDERED: Albuterol/Ipratropium 3ml neb HHN ONE (18:27)
[2017-02-01] MEDS: Albuterol/Ipratropium 3ml neb HHN SCH ×2 (18:38→22:25)
[2017-02-01 20:00] VITALS: BP 138/82
[2017-02-01] MEDS: Isentress 400mg tab ORAL SCH (21:59)
[2017-02-01] MEDS: Darunavir 600mg tab ORAL SCH (21:59)
[2017-02-01] MEDS: cefTRIAXone 1gm/D5W 55ml IVPB SCH ×2 (22:00)
[2017-02-01] MEDS: NovoLOG Insulin Flexpen SUBQ SCH (22:01)
[2017-02-01] MEDS: Solu-MEDROL 125mg Inj IVP SCH (22:02)
[2017-02-02] VITALS: BP 141/77
[2017-02-02] MEDS: Albuterol/Ipratropium 3ml neb HHN SCH ×6 (02:35→23:03)
[2017-02-02] MEDS ORDERED: 1/2NS w/KCl 20mEq 1000ml 1,000 ML IV SCH (02:45)
[2017-02-02 04:48] VITALS: BP 131/69
[2017-02-02] MEDS: Solu-MEDROL 125mg Inj IVP SCH (06:02)
[2017-02-02] MEDS: NovoLOG Insulin Flexpen SUBQ SCH ×4 (06:06→21:33)
[2017-02-02 07:16] LABS: MEAN CORPUSCULAR HEMOGLOBIN 31.8 PG (27.0-31.0); MEAN CORPUSCULAR HGB CONC 33.7 G/DL (32.0-36.0); MEAN CORPUSCULAR VOLUME 94 FL (80-99); PLATELET COUNT 194 K/UL (150-450); RED BLOOD COUNT 3.77 M/UL (4.70-6.10); RED CELL DISTRIBUTION WIDTH 12.6 % (11.6-14.8)
[2017-02-02 07:51] LABS: ALANINE AMINOTRANSFERASE 30 U/L (12-78); ALBUMIN/GLOBULIN RATIO 0.9 (1.0-2.7); ANION GAP 7 mmol/L (5-15); ASPARTATE AMINO TRANSFERASE 25 U/L (15-37); CALCIUM 8.2 MG/DL (8.5-10.1); CARBON DIOXIDE 28 MMOL/L (21-32); CHLORIDE 105 MMOL/L (98-107); CREATININE 0.8 MG/DL (0.55-1.30); GLOMERULAR FILTRATION RATE > 60 mL/min (>60); MAGNESIUM 1.9 MG/DL (1.8-2.4); POTASSIUM 4.1 MMOL/L (3.5-5.1); SODIUM 140 MMOL/L (136-145); THYROID STIMULATING HORMONE 0.264 uiU/mL (0.358-3.740); TOTAL PROTEIN 7.1 G/DL (6.4-8.2)
[2017-02-02 07:56] LABS: WHITE BLOOD COUNT 1.8 K/UL (4.8-10.8)
[2017-02-02 08:00] VITALS: BP 115/71
[2017-02-02 08:02] LABS: BASOPHILS % (MANUAL) 1 % (0-2); EOSINOPHILS % (MANUAL) 1 % (0-3); LYMPHOCYTES % (MANUAL) 21 % (20-45); NEUTROPHILS % (MANUAL) 73 % (45-75); TOTAL CELLS COUNTED 100
[2017-02-02 08:03] LABS: BAND NEUTROPHILS % (MANUAL) 0 % (0-8); PLATELET ESTIMATE ADEQUATE; PLATELET MORPHOLOGY NORMAL
[2017-02-02] MEDS: Benzonatate 100mg Perles ORAL SCH ×3 (09:13→18:14)
[2017-02-02] MEDS: metFORMIN 500mg tab ORAL SCH (09:13)
[2017-02-02] MEDS: Ritonavir 100mg tab ORAL SCH ×2 (09:13→18:13)
[2017-02-02] MEDS: Bactrim DS (160mg/800mg) tab ORAL SCH (09:13)
[2017-02-02] MEDS: Darunavir 600mg tab ORAL SCH ×2 (09:13→21:23)
[2017-02-02] MEDS: Fluconazole 100mg tab ORAL SCH (09:14)
[2017-02-02] MEDS: GlipiZIDE 10mg tab ORAL SCH (09:14)
[2017-02-02] MEDS: Isentress 400mg tab ORAL SCH ×2 (09:14→21:22)
--- NOTE | 2017-02-02 10:53 | Diagnostic Imaging Report ---
Indication: Shortness of breath Technique: XRAY Chest 1v Comparison: 11/25/2016 Findings: Heart size and mediastinal contours are within normal limits given technique. There is subtle opacification in the right apex. There is no pleural effusion or pneumothorax. Remote/healed right-sided rib fracture. No acute osseous abnormality seen. Impression: Hazy opacification in the right apex may in part be artifactual however pneumonia or additional lesion not entirely excluded. Repeat exam and/or chest CT recommended for further evaluation. his is discrepant from the preliminary interpretation by the treating ER physician. Findings and follow-up imaging recommendations discussed with the patient's treating nurse on (patient admitted to 4E) via telephone conversation 10:45 AM on 02/02/2017.
[2017-02-02 12:00] VITALS: BP 132/75
[2017-02-02] MEDS ORDERED: Tubing IV Secondary IV ONE (12:41)
[2017-02-02] MEDS ORDERED: NS 500ML ONE (12:41)
--- NOTE | 2017-02-02 14:55 | Cardiology Report ---
APPROVED REPORT EKG Measurement Heart [id number] Normal sinus rhythm Normal ECG
[2017-02-02 16:00] VITALS: BP 130/77
--- NOTE | 2017-02-02 16:30 | History and Physical Report ---
DATE OF ADMISSION: 02/01/2017 REASON FOR ADMISSION: Shortness of breath, bronchospasm, both unresponsive to outpatient management. HISTORY OF PRESENT ILLNESS: This is a 51-year-old HIV-positive male who has history of asthma. He has had increased difficulty of breathing, congestion, wheezing, and shortness of breath for several days. He was started on outpatient oral antibiotic as well as steroids, but did not improve. He came to the emergency room for assessment and was noted to have evidence of acute bronchospasm and accessory muscle use. Hospitalization was initiated. ALLERGIES: The patient has allergies to ciprofloxacin. PAST MEDICAL HISTORY: Outlined above. Type 2 diabetes mellitus. MEDICATIONS: Reviewed and reconciled. REVIEW OF SYSTEMS: A 10-point review of systems performed. All systems negative other than noted above. PHYSICAL EXAMINATION: VITAL SIGNS: Afebrile, blood pressure 159/85, pulse 97, respiratory rate 24, oxygen saturation 95% on room air. HEENT: Normocephalic, atraumatic. Conjunctivae are pink. Oropharynx clear. No thrush. NECK: Supple. No accessory muscle use. LUNGS: With coarse breath sounds, rhonchi, and expiratory wheezes. CARDIAC: Regular rhythm. Rapid rate. Normal S1, S2 with no murmur, rub, or gallop. ABDOMEN: Soft, nontender. EXTREMITIES: Good pulses. No edema. NEUROLOGIC: Nonfocal. LABORATORY DATA: Sodium 147, potassium 3.9, bicarbonate 27, chloride 108, BUN 11, creatinine 0.8, glucose 62. Troponin zero. Pro-natriuretic peptide 158. White count 5.4, hemoglobin 13.9. IMPRESSION: 1. Acute bronchospasm. 2. Asthma exacerbation. 3. HIV-positive. 4. Acute bronchitis. 5. Type 2 diabetes mellitus. 6. Dehydration. 7. Hypernatremia. 8. Hypokalemia. PLAN: 1. Inpatient hospital stay. 2. Hypotonic IV fluids. 3. Check magnesium. 4. Replace potassium. 5. Empiric antibiotics. 6. Inhaled bronchodilators. 7. Intravenous steroids. 8. Monitor acid-base parameters and respiratory status closely. 9. Nasal oxygen ordered. Davonte Vernon M.D. DR: Flavio JOB#: [id number] CC:
[2017-02-02 20:00] VITALS: BP 138/74
[2017-02-02] MEDS ORDERED: Solu-MEDROL 40mg Inj IVP SCH (21:00)
[2017-02-02] MEDS: cefTRIAXone 1gm/D5W 55ml IVPB SCH ×2 (21:37)
[2017-02-03] VITALS: BP 139/85
--- NOTE | 2017-02-03 00:15 | Consultation ---
DATE OF CONSULTATION: 02/02/2017 PULMONARY CONSULTATION HISTORY OF PRESENT ILLNESS: This is a 51-year-old male that I know from my outpatient practice. He has a history of asthma. He has a history of HIV positivity. He came to the hospital with shortness of breath. He has been admitted for the last few days. He was given azithromycin and this morning he states he is feeling better. PAST MEDICAL HISTORY: Asthma and HIV. SURGERIES: None. HOME MEDICATIONS: Reviewed and reconciled. ALLERGIES: Ciprofloxacin. REVIEW OF SYSTEMS: Denies any headaches, hematemesis, melena, or hematochezia. PHYSICAL EXAMINATION: GENERAL: Reveals a 51-year-old male. VITAL SIGNS: Blood pressure 150/80, heart rate 80, and respirations 19. He is afebrile. O2 sat is 95% on room air. HEENT: Unremarkable. CHEST: Chest exam this morning shows clear breath sounds bilaterally with normal heart sounds. ABDOMEN: Soft. EXTREMITIES: No edema. NEUROLOGIC: Nonfocal. IMAGING: X-ray of the chest is unremarkable. IMPRESSION: 1. Asthma. 2. Human immunodeficiency virus. DISCUSSION: The patient is doing remarkably well. Overnight, he received breathing treatments as well as antibiotics and steroids. This morning, he is comfortable. It is my recommendation that he may be discharged home with outpatient followup with his primary care physician, to follow up with my office as well. Sudarshan Shaikh M.D. DR: SHAILESH JOB#: [id number] CC:
[2017-02-03] MEDS: Albuterol/Ipratropium 3ml neb HHN SCH ×3 (03:00→11:00)
--- NOTE | 2017-02-03 03:30 | Progress Note ---
DATE: 02/02/2017 INTERNAL MEDICINE PROGRESS NOTE SUBJECTIVE: The patient was seen by nip wrapper, consult appreciated. The patient has less shortness of breath and congestion today. He had a repeat chest x-ray, PA and lateral, which was clear of any active disease. OBJECTIVE: VITAL SIGNS: Blood pressure 139/85, pulse 79, respiratory rate 21, and afebrile. LUNGS: No wheezing. Few rhonchi. HEART: Regular rhythm and rate. Normal S1 and S2. No accessory muscle use. ABDOMEN: Soft. EXTREMITIES: No edema. LABORATORY AND DIAGNOSTIC DATA: White count 1.8, hemoglobin 12. Potassium 4.1, BUN 16, creatinine 0.8, glucose 186. TSH 0.36. IMPRESSION: 1. Asthma exacerbation. 2. Acute bronchospasm, resolved. 3. Hyperglycemia due to steroids. 4. Human immunodeficiency virus/acquired immunodeficiency syndrome. 5. Upper respiratory infection with no sign of pneumonia radiographically. 6. Hypokalemia, corrected. 7. Hypernatremia and hypovolemia, corrected. PLAN: 1. Steroid taper. 2. Discontinue IV fluids. 3. Inhaled bronchodilators. 4. Continue empiric antibiotics. 5. Mobilize. 6. Discharge planning. Davonte Vernon M.D. DR: ANA PAULA JOB#: [id number] CC:
[2017-02-03 04:00] VITALS: BP 150/80
[2017-02-03] MEDS: NovoLOG Insulin Flexpen SUBQ SCH (06:00)
[2017-02-03 07:08] LABS: MEAN CORPUSCULAR HEMOGLOBIN 31.3 PG (27.0-31.0); MEAN CORPUSCULAR HGB CONC 33.1 G/DL (32.0-36.0); MEAN CORPUSCULAR VOLUME 95 FL (80-99); MEAN PLATELET VOLUME 8.1 FL (6.5-10.1); PLATELET COUNT 200 K/UL (150-450); RED BLOOD COUNT 3.76 M/UL (4.70-6.10); RED CELL DISTRIBUTION WIDTH 12.6 % (11.6-14.8); WHITE BLOOD COUNT 2.7 K/UL (4.8-10.8)
[2017-02-03 08:00] VITALS: BP 142/87
[2017-02-03] MEDS ORDERED: Solu-MEDROL 40mg Inj IVP SCH (09:00)
[2017-02-03] MEDS: Ritonavir 100mg tab ORAL SCH (09:07)
[2017-02-03] MEDS: Bactrim DS (160mg/800mg) tab ORAL SCH (09:07)
[2017-02-03] MEDS: Benzonatate 100mg Perles ORAL SCH (09:07)
[2017-02-03] MEDS: Isentress 400mg tab ORAL SCH (09:07)
[2017-02-03] MEDS: Fluconazole 100mg tab ORAL SCH (09:07)
[2017-02-03] MEDS: Darunavir 600mg tab ORAL SCH (09:07)
[2017-02-03] MEDS: GlipiZIDE 10mg tab ORAL SCH (09:07)
[2017-02-03] MEDS: metFORMIN 500mg tab ORAL SCH (09:08)
[2017-02-03 10:19] LABS: BAND NEUTROPHILS % (MANUAL) 4 % (0-8); BASOPHILS % (MANUAL) 0 % (0-2); EOSINOPHILS % (MANUAL) 0 % (0-3); HYPOCHROMASIA 1+; LYMPHOCYTES % (MANUAL) 13 % (20-45); NEUTROPHILS % (MANUAL) 76 % (45-75); PLATELET ESTIMATE ADEQUATE; PLATELET MORPHOLOGY NORMAL; TOTAL CELLS COUNTED 100
--- NOTE | 2017-02-03 10:25 | Diagnostic Imaging Report ---
Indication: Previous abnormal chest x-ray. Pain, abnormal chest sounds Technique: XRAY Chest 2v Comparison: 2316 Findings: The heart is normal in size. There is some interstitial disease. In the right apex there is a suggestion of a 2 cm cavitary area. No pleural fluid. Impression: Bilateral interstitial disease. Possible cavitary lesion in the right upper lobe. Further evaluation with CT of the chest is suggested. There is discrepancy between this report and preliminary reading. Stat read was notified electronically.
--- NOTE | 2017-02-06 15:43 | Discharge Summary ---
Discharge Summary Hospital Course Date of Admission Feb 01, 2017 at 15:59 Date of Discharge Feb 03, 2017 at 11:20 Admitting Diagnosis asthma exacerbation HPI Everett Benavides is a 51 year old male who was admitted on Feb 01, 2017 at 15:59 for Asthma Exacerbation Hospital Course dc summary #[id number] Discharge Condition Upon Discharge: stable Discharge Disposition Patient was discharged home Discharge Diagnoses: Discharge Instructions Discharge Instructions Special Instructions I have been assigned to complete a D/C Summary on this account. I was not involved in the patient management Mildred Kolb NP (Vanchtein) Feb 06, 2017 15:43
[2017-02-07] MEDS ORDERED: Azithromycin 600mg Tab ORAL SCH (09:00)
--- NOTE | 2017-02-07 13:45 | Discharge Summary 2 SIG ---
DATE OF ADMISSION: 02/01/2017 DATE OF DISCHARGE: 02/03/2017 REASON FOR ADMISSION: 51-year-old male with a history of asthma, diabetes, and HIV, presented to emergency department with difficulty breathing. The patient reported being sick for two to three days. The patient reported taking oral steroids and nebulizing treatment. However had increasing difficulty breathing and was in tripod position on arrival to ED. The patient was recently started on azithromycin and reportedly took 2 pills a day prior to presentation to the emergency department. Upon evaluation, slightly elevated blood pressure 159/55, tachypnea- 24, pulse oximetry was stable on room air and afebrile. Chest x-ray showed no evidence of acute cardiopulmonary pathology. No leukocytosis. Stable hemoglobin and hematocrit. Troponin negative. Sodium- 147 and potassium- 2.9. The patient has a history of diabetes. The patient was admitted with acute asthma exacerbation, acute bronchospasm, HIV positive, acute bronchitis,type 2 diabetes mellitus, dehydration, hyponatremia and hypokalemia. HOSPITAL COURSE: The patient was admitted. Supplemental oxygen was provided to keep pulse oximetry above 92%. Pulmonary toilet provided with inhaled bronchodilators around the clock and as needed. The patient was started on the IV steroids, which were gradually tapered down. Respiratory status and acid-based parameters were closely monitored. [employer] closely followed. The patient was on empiric antibiotics. Antitussive was provided as needed. The patient was started on hypotonic IV fluids. Potassium was replaced. With IV hydration, sodium down from 147 to 140 the next day and potassium after replacement up to 4.1. The patient was mobilized. The patient was rapidly improving. HAART therapy resumed. Blood sugar was managed with oral anti-glycemic regimen. The patient was stable for discharge. FINAL DIAGNOSES: 1. Acute bronchospasm. 2. Asthma exacerbation. 3. Human immunodeficiency virus status. 4. Acute bronchitis. 5. Type 2 diabetes mellitus. 6. Dehydration, resolved. 7. Hyponatremia, resolved. 8. Hypokalemia, resolved. DISCHARGE MEDICATIONS: See medication reconciliation list. Encouraged compliance. DISCHARGE INSTRUCTIONS: The patient was discharged home. Follow up with the primary medical doctor next week. Davonte Vernon M.D. I have been assigned to dictate discharge summary on this account and I was not involved in the patient's management. Mildred Matarudolph NJhonatanPJhonatan DR: VAUGHN JOB#: [id number] CC: REY
== END 2017-02-03 11:20 | disposition home or self-care (01) | DRG 202 ==
LOC: EMR 15:00 → 4E 15:59 → EDBEDREQ 17:01
DX: J45.901 Unspecified asthma with (acute) exacerbation (principal); B20 Human immunodeficiency virus [HIV] disease; E87.0 Hyperosmolality and hypernatremia; E11.65 Type 2 diabetes mellitus with hyperglycemia; J20.9 Acute bronchitis, unspecified; E86.0 Dehydration; E87.6 Hypokalemia; Z88.1 Allergy status to other antibiotic agents; T38.0X5A Adverse effect of glucocorticoids and synthetic analogues, initial encounter; E86.1 Hypovolemia
CPT/HCPCS: 36415; 71010; 71020; 80053; 81003; 82962; 83735; 83880; 84443; 84484; 85007; 85025; 85379; 86710; 87040; 93005; 94640; 94664; 99285; J1815; J7620; J8499

== ENCOUNTER 2017-03-27 11:46 | Emergency (ER) | payer BC ==
[~2017-03-27] VITALS: Ht 177.8 cm; Wt 90.7 kg
[~2017-03-27 11:46] MED LIST changes: +BENZONATATE100 MG ORAL; +GLIPIZIDE10 MG PO; +INTELENCE200 MG ORAL; +METFORMIN HCL1000 M1 ORAL
[2017-03-27 12:00] VITALS: BP 174/86
[2017-03-27] MEDS ORDERED: Promethazine Plain 6.25mg/5ml ORAL ONE (12:30)
[2017-03-27] MEDS: Albuterol/Ipratropium 3ml neb HHN SCH ×4 (12:44→13:52)
--- NOTE | 2017-03-27 13:03 | Diagnostic Imaging Report ---
Indication: Dyspnea Comparison: 02/02/2017 A single view chest radiograph was obtained. Findings: Cardiomediastinal appearance is within normal limits for age. Pulmonary vascularity is appropriate. The diaphragmatic contour is smooth and costophrenic angles are sharp. No pleural effusions are identified. The bones are unremarkable. Impression: No acute findings
--- NOTE | 2017-03-27 14:06 | Emergency Room Report ---
History of Present Illness General Chief Complaint: Dyspnea/Respdistress Source: Patient Present Illness HPI 51-year-old male presents to the emergency department complaining of wheezing and shortness of breath since last night. Patient reports using albuterol treatment last night with no relief. Patient states that over the last 3 months he has had multiple episodes of bronchitis exacerbations as well as getting pneumonia at one point. Patient reports history of HIV and states that his viral load is typically undetectable however on occasion he does. This medication. He states she's also regularly with his doctor however does report CD4 count on the lower end. Patient denies fevers, chills, recent travel. He reports except as 10 in severity chest pain that he describes as tightness and states that he can feel and hear some wheezing. Denies swelling of the lower extremities. Denies Palpitations, LOC, AMS, dizziness, Changes in Vision, Sensation, paresthesias, or a sudden severe headache. Allergies: Coded Allergies: CIPROFLOXACIN (Verified Allergy, Severe, Anaphylaxis, 02/16/16) Patient History Past Medical History: see triage record, asthma, HIV Past Surgical History: none Pertinent Family History: none Immunizations: UTD Reviewed Nursing Documentation: PMH: Agreed, PSxH: Agreed Nursing Documentation-PMH Past Medical History: No History, Except For Hx Cardiac Problems: No Hx Hypertension: No Hx Pacemaker: No Hx Asthma: Yes - HIV + Hx COPD: No Hx Diabetes: Yes - Type 2 Hx Cancer: No Hx Gastrointestinal Problems: No Hx Dialysis: No Hx Neurological Problems: No Hx Cerebrovascular Accident: No Hx Seizures: No Review of Systems All Other Systems: negative except mentioned in HPI Physical Exam Vital Signs Date Time Temp Pulse Resp B/P (MAP) Pulse Ox O2 Delivery O2 Flow Rate FiO2 03/27/17 11:55 98.1 79 18 177/80 98 Room Air 98.1 03/27/17 12:00 98 Sp02 EP Interpretation: reviewed, normal General Appearance: alert, GCS 15, non-toxic, mild distress - some audible wheezes Head: normocephalic, atraumatic Eyes: bilateral eye normal inspection, bilateral eye PERRL ENT: hearing grossly normal, normal voice, nasal congestion Neck: full range of motion Respiratory: chest non-tender, lungs clear, normal breath sounds, speaking full sentences, wheezing - moderate expiratory wheezes bilaterallly on ascultation with audible wheezes durring normal breaths. Cardiovascular #1: regular rate, rhythm, no edema, normal capillary refill Musculoskeletal: back normal, gait/station normal, normal range of motion Neurologic: alert, oriented x3, responsive, motor strength/tone normal, sensory intact, speech normal, grossly normal Psychiatric: judgement/insight normal Skin: normal color, no rash, warm/dry, well hydrated Medical Decision Making PA Attestation Dr. Goddard is my supervising Physician whom patient management has been discussed with. Diagnostic Impression: Primary Impression: Bronchitis with asthma, acute ER Course Pt. presents to the ED c/o cough and wheezing x 2 days, Pt. has a hx of asthma, and inhaler treatments at home are not helping. Ddx considered but are not limited to asthma exacerbation, CHF, URI, pneumonia, PE, strep pharyngitis, meningitis. Vital signs: Pt. is afebrile, other than elevated BP, VS are WNL, good O2 saturation at 98%. H&PE are most consistent with Bronchitis and moderate acute asthma exacerbation , audible wheezes at rest, expiratory wheezes auscultated bilaterally. ORDERS: -CXR: unremarkable ED INTERVENTIONS: - Duo Nebs x 3 - re-examination post nebulized treatment bilateral wheezes have significantly improved. pt. reports relilef of his SOB. there is residual wheezes however much improved from initial evaluation. -D/w pt will d/c with oral Prednisone and medication for his nebulizer. Pt. to contact his PCP and follow up in 3 days, otherwise return promptly to the ED with worsening or new symptoms. DISCHARGE: At this time pt. is stable for d/c to home. Will provide printed patient care instructions, and any necessary prescriptions. Care plan and follow up instructions have been discussed with the patient prior to discharge. Chest X-Ray Diagnostic Results Chest X-Ray Diagnostic Results : Chest X-Ray Ordered: Yes # of Views/Limited/Complete: 1 View Indication: Shortness of Breath EP Interpretation: Yes JODEE Xray: Interpretation reviewed, by supervising MD - Dr. Goddard Interpretation: no consolidation, no effusion, no pneumothorax, no acute cardiopulmonary disease Impression: No acute disease Electronically Signed by: Kendra Castorena PA-C Last Vital Signs Date Time Temp Pulse Resp B/P (MAP) Pulse Ox O2 Delivery O2 Flow Rate FiO2 03/27/17 13:20 77 20 94 Room Air 21 03/27/17 12:00 98.1 174/86 98.1 Disposition: HOME, SELF-CARE Condition: Stable Scripts Codeine/Promethazine Hcl* (PROMETHAZINE-CODEINE SYRUP*) 118 Ml Syrup 5 ML ORAL Q6H Y for For Cough, #120 ML 0 Refills Prov: Kendra Castorena 03/27/17 Prednisone* (PREDNISONE*) 20 Mg Tablet 40 MG ORAL DAILY for 5 Days, #10 TAB Prov: Kendra Castorena 03/27/17 Ipratropium Rutledge 0.5MG/2.5ML (IPRATROPIUM BROMIDE 0.5MG/2.5ML) 0.2 Mg/1 Ml Solution 0.5 MG HHN Q6H Y for Shortness of Breath, #28 EA Prov: Kendra Castorena 03/27/17 Referrals: [facility],REFERRING (PCP) Patient Instructions: Acute Bronchitis Additional Instructions: Take medications as directed. Follow up with a Primary Care Provider in 3-5 days, even if your symptoms have resolved. --Please review list of primary care clinics, if you do not already have a primary care provider Return sooner to ED if new symptoms occur, or current symptoms become worse. Do not drink alcohol, drive, or operate heavy machinery while taking Cough Syrup as this may cause drowsiness. - Please note that this Emergency Department Report was dictated using [employer] hand technology software, occasionally this can lead to erroneous entry secondary to interpretation by the dictation equipment. Kendra Castorena Mar 27, 2017 14:06
[2017-03-27] MEDS ORDERED: IPRATROPIU0.2 MG/1 M HHN (14:08)
[2017-03-27] MEDS ORDERED: PROMETHAZINE-C118 M1 ORAL (14:08)
[2017-03-27] MEDS ORDERED: PREDNISONE20 MG ORAL (14:08)
[2017-03-27 14:20] VITALS: BP 152/83
== END 2017-03-27 16:08 | disposition home or self-care (01) ==
LOC: EMR 12:50
DX: J45.901 Unspecified asthma with (acute) exacerbation (principal); E11.9 Type 2 diabetes mellitus without complications
CPT/HCPCS: 71045; 94640; 94664; 99284; 99285; J7620

== ENCOUNTER 2017-03-27 17:54 | Emergency (ER) | payer BC ==
[~2017-03-27] VITALS: Ht 177.8 cm; Wt 90.7 kg
[2017-03-27 18:09] VITALS: BP 169/84
[2017-03-27] MEDS ORDERED: Solu-MEDROL 125mg Inj IVP ONE (18:15)
[2017-03-27] MEDS: Ipratropium 0.02% Inh Soln 2.5ml UD HHN SCH ×2 (18:24→18:25)
[2017-03-27] MEDS: Albuterol ud Inhalation HHN SCH ×6 (18:24→22:57)
[2017-03-27 18:30] LABS: HEMATOCRIT 47.2 % (42.0-52.0); HEMOGLOBIN 15.9 G/DL (14.2-18.0); MEAN CORPUSCULAR VOLUME 86 FL (80-99); PLATELET COUNT 142 K/UL (150-450); RED BLOOD COUNT 5.47 M/UL (4.70-6.10); RED CELL DISTRIBUTION WIDTH 12.2 % (11.6-14.8); WHITE BLOOD COUNT 2.4 K/UL (4.8-10.8)
[2017-03-27 18:31] LABS: MONOCYTES % (AUTO) 8.4 % (1.0-10.0); NEUTROPHILS % (AUTO) 59.8 % (45.0-75.0)
--- NOTE | 2017-03-27 18:31 | Emergency Room Report ---
History of Present Illness General Chief Complaint: Dyspnea/Respdistress Source: Patient Present Illness HPI 51-year-old male with history of asthma, HIV positive on treatment, p/w SOB for 7 days. SOB occurs both at rest and on exertion. + non productive cough. + Chest tightness Patient was seen in the emergency room today, got nebulizer treatment, felt better and then went home. Patient returned because of worsening symptoms at home. Pt states that this episode is similar to other episodes of asthma exacerbation. Denies fever, chills. Denies sick contacts or recent travel. Patient denies history of ICU admissions, intubations, or usage of BIPAP for asthma. Last admission was for asthma exacerbation 2 months ago non smoker Allergies: Coded Allergies: CIPROFLOXACIN (Verified Allergy, Severe, Anaphylaxis, 02/16/16) Patient History Past Medical History: see triage record Past Surgical History: none Pertinent Family History: none Reviewed Nursing Documentation: PMH: Agreed, PSxH: Agreed Nursing Documentation-PMH Hx Cardiac Problems: No Hx Hypertension: No Hx Pacemaker: No Hx Asthma: Yes - HIV + Hx COPD: No Hx Diabetes: Yes - Type 2 Hx Cancer: No Hx Gastrointestinal Problems: No Hx Dialysis: No Hx Neurological Problems: No Hx Cerebrovascular Accident: No Hx Seizures: No Review of Systems All Other Systems: negative except mentioned in HPI Physical Exam Vital Signs Date Time Temp Pulse Resp B/P (MAP) Pulse Ox O2 Delivery O2 Flow Rate FiO2 03/27/17 17:59 97.6 94 25 190/89 96 Room Air 97.5 03/27/17 18:21 21 Sp02 EP Interpretation: reviewed, normal General Appearance: alert, GCS 15, moderate distress Head: normocephalic, atraumatic Eyes: bilateral eye normal inspection, bilateral eye PERRL, bilateral eye EOMI ENT: normal ENT inspection, normal pharynx, normal voice, moist mucus membranes Neck: normal inspection, full range of motion, supple Respiratory: no retraction, no accessory muscle use, respiratory distress, wheezing, expiration, other - tachypneic, chest symmetrical Cardiovascular #1: normal inspection, regular rate, rhythm, no edema, normal capillary refill Cardiovascular #2: 2+ radial (R), 2+ radial (L) Gastrointestinal: normal inspection, non tender, soft, non-distended, no guarding Genitourinary: no CVA tenderness Musculoskeletal: normal inspection, back normal, normal range of motion, non- tender Neurologic: normal inspection, alert, oriented x3, responsive, motor strength/ tone normal, sensory intact, normal gait, speech normal Psychiatric: normal inspection, judgement/insight normal, memory normal Skin: normal inspection, normal color, no rash, warm/dry, well hydrated, normal turgor Medical Decision Making Diagnostic Impression: Primary Impression: Asthma exacerbation ER Course 51 yo M with history of asthma p/w SOB DDX: Asthma exacerbation, pneumonia, upper respiratory infection/viral syndrome, ACS PE is unlikely given other likely diagnoses which is more likely in this patients given clinical scenario and physical examination. Furthermore, there is no history of DVT/PE. PERC negative. Plan: Labs, Combivent nebulizer treatment x 3, steroids, EKG, CXR If patient's condition minimally improves/worsens will require IV access and blood work. Possible IV medications such as magnesium sulfate, continuous albuterol, BIPAP. ER Course: Patient's respiratory status has been closely monitored in the ED. Patient has been treated with combivent x 3, steroids, antibiotics. +IV mag sulfate CXR reveals no acute infiltrate Repeat lung auscultation reveals persistent wheezing. Disposition: Patient will be xferred to outside hospital for insurance purposes. stable for xfer DW Dr Poon who has accepted pt Please note that this Emergency Department Report was dictated using [employer] remote control diesel technology software, occasionally this can lead to erroneous entry secondary to interpretation by the dictation equipment. EKG Diagnostic Results EP Interpretation: Yes Rate: normal Rhythm: NSR ST Segments: No acute changes ASA given to patient: no Rhythm Strip EP Interpretation: Yes Rate: 80 Rhythm: NSR, no PVCs, no ectopy Chest X-ray CXR: Ordered: Yes 1 view Indication: Shortness of breath EP interpretation: Yes Interpretation: No consolidation, no effusion, no PTX, no acute cardiopulmonary disease Impression: No acute disease Electronically signed by Cheryl Morse MD Laboratory Tests Test 03/27/17 18:15 White Blood Count 2.4 K/UL (4.8-10.8) L Red Blood Count 5.47 M/UL (4.70-6.10) Hemoglobin 15.9 G/DL (14.2-18.0) Hematocrit 47.2 % (42.0-52.0) Mean Corpuscular Volume 86 FL (80-99) Mean Corpuscular Hemoglobin 29.0 PG (27.0-31.0) Mean Corpuscular Hemoglobin Concent 33.7 G/DL (32.0-36.0) Red Cell Distribution Width 12.2 % (11.6-14.8) Platelet Count 142 K/UL (150-450) L Mean Platelet Volume 9.9 FL (6.5-10.1) Neutrophils (%) (Auto) 59.8 % (45.0-75.0) Lymphocytes (%) (Auto) 22.0 % (20.0-45.0) Monocytes (%) (Auto) 8.4 % (1.0-10.0) Eosinophils (%) (Auto) 8.1 % (0.0-3.0) H Basophils (%) (Auto) 1.8 % (0.0-2.0) Sodium Level 141 MMOL/L (136-145) Potassium Level 3.6 MMOL/L (3.5-5.1) Chloride Level 105 MMOL/L (98-107) Carbon Dioxide Level 26 MMOL/L (21-32) Anion Gap 10 mmol/L (5-15) Blood Urea Nitrogen 7 mg/dL (7-18) Creatinine 0.8 MG/DL (0.55-1.30) Estimate Glomerular Filtration Rate > 60 mL/min (>60) Glucose Level 81 MG/DL (74-106) Calcium Level 9.1 MG/DL (8.5-10.1) Total Bilirubin 0.6 MG/DL (0.2-1.0) Aspartate Amino Transferase (AST) 39 U/L (15-37) H Alanine Aminotransferase (ALT) 57 U/L (12-78) Alkaline Phosphatase 114 U/L (46-116) Troponin I 0.000 ng/mL (0.000-0.056) Pro-B-Type Natriuretic Peptide 77 pg/mL (0-125) Total Protein 8.0 G/DL (6.4-8.2) Albumin 4.6 G/DL (3.4-5.0) Globulin 3.4 g/dL Albumin/Globulin Ratio 1.4 (1.0-2.7) Last Vital Signs Date Time Temp Pulse Resp B/P (MAP) Pulse Ox O2 Delivery O2 Flow Rate FiO2 03/27/17 18:22 91 25 Room Air 21 03/27/17 18:21 95 03/27/17 17:59 97.6 190/89 97.5 Disposition: XFER [facility] HOSP Condition: Serious Referrals: [facility],REFERRING (PCP) Cheryl Morse M.D. Mar 27, 2017 18:31
[2017-03-27 18:32] LABS: BASOPHILS % (AUTO) 1.8 % (0.0-2.0); EOSINOPHILS % (AUTO) 8.1 % (0.0-3.0)
[2017-03-27 18:56] LABS: ANION GAP 10 mmol/L (5-15); BLOOD UREA NITROGEN 7 mg/dL (7-18); CALCIUM 9.1 MG/DL (8.5-10.1); CARBON DIOXIDE 26 MMOL/L (21-32); CHLORIDE 105 MMOL/L (98-107); CREATININE 0.8 MG/DL (0.55-1.30); POTASSIUM 3.6 MMOL/L (3.5-5.1); SODIUM 141 MMOL/L (136-145)
[2017-03-27 19:07] LABS: ALANINE AMINOTRANSFERASE 57 U/L (12-78); ALBUMIN 4.6 G/DL (3.4-5.0); ALBUMIN/GLOBULIN RATIO 1.4 (1.0-2.7); ALKALINE PHOSPHATASE 114 U/L (46-116); ASPARTATE AMINO TRANSFERASE 39 U/L (15-37); BILIRUBIN,TOTAL 0.6 MG/DL (0.2-1.0)
[2017-03-27 19:12] VITALS: BP 155/81
[2017-03-27 21:00] VITALS: BP 144/64
[2017-03-27 23:00] VITALS: BP 150/82
[2017-03-27 23:30] VITALS: BP 150/82
--- NOTE | 2017-03-28 12:18 | Diagnostic Imaging Report ---
Indication: Shortness of breath Technique: One view of the chest Comparison: 03/27/2017 Findings: Lungs and pleural spaces are clear. Heart size is normal. No significant interim change Impression: No acute process
--- NOTE | 2017-03-28 14:22 | Cardiology Report ---
APPROVED REPORT EKG Measurement Heart [id number] Normal sinus rhythm Normal ECG
== END 2017-03-27 23:40 | disposition short-term general hospital (02) ==
LOC: EMR 18:20
DX: J45.901 Unspecified asthma with (acute) exacerbation (principal); Z88.1 Allergy status to other antibiotic agents; E11.9 Type 2 diabetes mellitus without complications
CPT/HCPCS: 36415; 71045; 80053; 83880; 84484; 85025; 93005; 94640; 94664; 96365; 96375; 99285; J2930

== ENCOUNTER 2018-07-12 04:48 | Emergency (ER) | payer BC ==
[~2018-07-12] VITALS: Ht 180.3 cm; Wt 99.8 kg
[2018-07-12 05:02] VITALS: BP 165/81
--- NOTE | 2018-07-12 05:04 | NUR ---
ED Nurse Note: Pt ambulated to Ed from home, c/o SOB. Pt has a hx of asthma and bronchitis. Pt denies pain at this time. Pt triaged at bedside. PT A&Ox4. VSS. Spo2 94% on room air
[2018-07-12] MEDS ORDERED: Albuterol ud Inhalation HHN ONE (05:15)
[2018-07-12] MEDS ORDERED: Ipratropium 0.02% Inh Soln 2.5ml UD HHN ONE (05:15)
--- NOTE | 2018-07-12 05:23 | Emergency Room Report ---
History of Present Illness General Chief Complaint: Dyspnea/Respdistress Source: Patient Present Illness HPI Patient presents with complaints of shortness of breath and asthma exacerbation Reports that he was at a wedding yesterday and is not sure if the ventilation caused his breathing to worsen Patient has history of underlying asthma and bronchitis Denies any chest pain denies any back or flank pain denies any vomiting or diarrhea denies any fevers or chills Allergies: Coded Allergies: CIPROFLOXACIN (Verified Allergy, Severe, Anaphylaxis, 02/16/16) Patient History Past Medical History: see triage record Pertinent Family History: none Reviewed Nursing Documentation: PMH: Agreed; PSxH: Agreed Nursing Documentation-PMH Past Medical History: No History, Except For Hx Hypertension: No Hx Pacemaker: No Hx Asthma: Yes Hx COPD: No Hx Diabetes: No Hx Cancer: No Hx Gastrointestinal Problems: No Hx Dialysis: No History Of Psychiatric Problem: No Hx Neurological Problems: No Hx Cerebrovascular Accident: No Hx Seizures: No Review of Systems All Other Systems: negative except mentioned in HPI Physical Exam Vital Signs Date Time Temp Pulse Resp B/P (MAP) Pulse Ox O2 Delivery O2 Flow Rate FiO2 07/12/18 04:57 98.6 74 16 165/81 (109) 94 Room Air Sp02 EP Interpretation: reviewed, normal General Appearance: well appearing, no apparent distress Head: normocephalic, atraumatic Eyes: bilateral eye PERRL, bilateral eye EOMI ENT: hearing grossly normal, normal pharynx, TMs + canals normal, uvula midline Neck: full range of motion, supple, no meningismus, no bony tend Respiratory: no respiratory distress, no retraction, no accessory muscle use, wheezing - Bilaterally Cardiovascular #1: normal peripheral pulses, regular rate, rhythm, no edema, no gallop, no JVD, no murmur Gastrointestinal: normal bowel sounds, non tender, soft, no mass, no organomegaly, non-distended, no guarding, no hernia, no pulsatile mass, no rebound Genitourinary: no CVA tenderness Musculoskeletal: normal inspection Neurologic: oriented x3, responsive, auto inspector III-XII nml as tested, motor strength/ tone normal, sensory intact Psychiatric: mood/affect normal Skin: normal color, no rash, warm/dry, palpation normal Lymphatic: normal inspection, no adenopathy Medical Decision Making Diagnostic Impression: Primary Impression: Asthma attack ER Course Patient is a fairly complex patient with multiple differential to consideration including but not limited to cardiac cardiopulmonary and vascular emergencies Patient's lung sounds are consistent with likely asthma exacerbation Breathing treatment is initiated patient has done better with acute intervention I did not feel patient required acute emergency imaging and is stable for close follow-up Rhythm Strip Diag. Results EP Interpretation: yes Rate: 70 Rhythm: NSR, no PVC's, no ectopy Last Vital Signs Date Time Temp Pulse Resp B/P (MAP) Pulse Ox O2 Delivery O2 Flow Rate FiO2 07/12/18 05:02 74 16 07/12/18 05:02 98.6 165/81 94 Room Air Status: improved Disposition: HOME, SELF-CARE Condition: Improved Scripts Methylprednisolone (Methylprednisolone*) 4MG Dspk 4 MG ORAL DIRECTED for 6 Days, #21 EA 0 Refills Day 1: Two tablets before breakfast, one after lunch, one after dinner, and two at bedtime. If started late in the day, take all six tablets at once or divide into two or three doses, unless otherwise directed by prescriber. Day 2: One tablet before breakfast, one after lunch, one after dinner, and two at bedtime Day 3: One tablet before breakfast, one after lunch, one after dinner, and one at bedtime Day 4: One tablet before breakfast, one after lunch, and one at bedtime Day 5: One tablet before breakfast and one at bedtime Day 6: One tablet before breakfast Prov: Zayda Bertrand DO 07/12/18 Albuterol Sulfate* (ALBUTEROL SULFATE HHN*) 2.5 Mg/3 Ml Vial.neb 2.5 MG HHN Q4H PRN for Shortness of Breath, #25 VIAL Prov: Zayda Bertrand DO 07/12/18 Albuterol Sulfate* (ALBUTEROL SULFATE MDI*) 8.5 Gm Hfa.aer.ad 2 PUFF INH Q4H PRN for cough/wheezing, #1 EA 0 Refills Prov: Zayda Bertrand DO 07/12/18 Fluticasone/Salmeterol (Advair 250-50 Diskus) 1 Each Blst.w.dev 1 PUFF INH EVERY 12 HOURS, #1 EA Prov: Zayda Bertrand DO 07/12/18 Referrals: NON PHYSICIAN (PCP) Additional Instructions: Patient is provided with the discharge instructions notified to follow up with primary doctor in the next 2-3 days otherwise return to the er with any worsening symptoms. Please note that this report is being documented using DRAGON technology. This can lead to erroneous entry secondary to incorrect interpretation by the dictating instrument. Zayda Bertrand DO Jul 12, 2018 05:23
[2018-07-12] MEDS ORDERED: ALBUTEROL2.5 MG/3 M HHN (05:52)
[2018-07-12] MEDS ORDERED: MEDROL DOSEPAK4 MG ORAL (05:52)
[2018-07-12] MEDS ORDERED: ALBUTEROL SULF8.5 GM INH (05:52)
[2018-07-12] MEDS ORDERED: ADVAIR 250/501 PUFFS INH (05:52)
--- NOTE | 2018-07-12 06:21 | NUR ---
ED Nurse Note: Pt recieving breathing tx, resting, tolerating well. No further orders at this time. Pt states lessened sob
--- NOTE | 2018-07-12 06:36 | NUR ---
ER DISCHARGE NOTE: Patient is cleared to be discharged per ERMD, pt is aox4, on room air, with stable vital signs. pt was given dc and prescription instructions, pt was able to verbalize understanding, pt id band removed. pt is able to ambulate with steady gait. pt took all belongings. Spo2 98% on room air, pt states sob has resovled, encouraged to come back if symptoms arise.
[2018-07-12 06:37] VITALS: BP 145/78
== END 2018-07-12 06:35 | disposition home or self-care (01) ==
LOC: EMR 05:14
DX: J45.901 Unspecified asthma with (acute) exacerbation (principal); Z88.8 Allergy status to other drugs, medicaments and biological substances
CPT/HCPCS: 94640; 99284; J7512

== ENCOUNTER 2018-08-30 00:05 | Emergency (ER) | payer BC ==
[~2018-08-30] VITALS: Ht 180.3 cm; Wt 99.8 kg
[~2018-08-30 00:05] MED LIST changes: +ADVAIR 250/501 PUFFS INH; +ALBUTEROL2.5 MG/3 M HHN; +MEDROL DOSEPAK4 MG ORAL
--- NOTE | 2018-08-30 00:28 | NUR ---
ED Nurse Note: PT WALKED IN C/O ASTHMA SX, PT STATES HE HAS BEEN FEELING LIKE THIS SINCE 2PM AND USED INHALER WITH NEBULIZER BUT HASN'T BEEN WORKING. NOTED WHEEZING TO AUSCULTATION, WILL CONT MONITOR, RT CONTACTED.
[2018-08-30] MEDS ORDERED: guaiFENesin 100mg/5ml Liq ud ORAL PRN (00:45)
[2018-08-30] MEDS ORDERED: Albuterol/Ipratropium 3ml neb HHN ONE ×2 (00:45→01:45)
[2018-08-30 01:10] VITALS: BP 158/76
[2018-08-30] MEDS ORDERED: PREDNISONE20 MG ORAL (02:00)
[2018-08-30] MEDS ORDERED: GUAIFENESIN DM118 M1 ORAL (02:00)
--- NOTE | 2018-08-30 02:10 | NUR ---
ED Nurse Note: pt cleared to be d/c per ERMD, pt discharge and aftercare instruction provided w/ prescription, pt education done via discussion and handout, pt advised to follow up with pcp or return to ed if changes in condition, vss, ambulatory w/ steady gait, left w/ all belongings.
[2018-08-30 02:15] VITALS: BP 130/75
--- NOTE | 2018-08-31 22:07 | Emergency Room Report ---
History of Present Illness General Chief Complaint: Asthma Source: Patient Present Illness Allergies: Coded Allergies: CIPROFLOXACIN (Verified Allergy, Severe, Anaphylaxis, 02/16/16) Nursing Documentation-PMH Hx Hypertension: No Hx Pacemaker: No Hx Asthma: Yes Hx COPD: No Hx Diabetes: No Hx Cancer: No Hx Gastrointestinal Problems: No Hx Dialysis: No Hx Neurological Problems: No Hx Cerebrovascular Accident: No Hx Seizures: No Physical Exam Vital Signs Date Time Temp Pulse Resp B/P (MAP) Pulse Ox O2 Delivery O2 Flow Rate FiO2 08/30/18 00:19 98.2 85 16 163/86 (111) 94 Room Air 08/30/18 00:46 21 Medical Decision Making Diagnostic Impression: Primary Impression: Bronchitis with asthma, acute Last Vital Signs Date Time Temp Pulse Resp B/P (MAP) Pulse Ox O2 Delivery O2 Flow Rate FiO2 08/30/18 02:15 98.2 75 18 130/75 100 Room Air 08/30/18 02:00 21 Disposition: HOME, SELF-CARE Condition: Stable Scripts Guaifenesin/Dextromethorphan (Guaifenesin Dm Syrup) 5 Ml Syrup 1 TSP ORAL Q8H, #118 ML 0 Refills Prov: Darrel Berumen MD 08/30/18 Prednisone* (PREDNISONE*) 20 Mg Tablet 40 MG ORAL DAILY, #8 TAB Prov: Darrel Berumen MD 08/30/18 Referrals: NON PHYSICIAN (PCP) Patient Instructions: Asthma, Adult Darrel Berumen MD Aug 31, 2018 22:07
== END 2018-08-30 02:15 | disposition home or self-care (01) ==
LOC: EMR 00:36
DX: J45.909 Unspecified asthma, uncomplicated (principal); Z88.8 Allergy status to other drugs, medicaments and biological substances
CPT/HCPCS: 94640; 94664; 99284; J7512; J7620